=== PATIENT | female | born 1940 | race Caucasian/White ===

== ENCOUNTER → 2018-04-03 10:22 | Outpatient (CLI) | payer BC, SELFPAY ==
[2018-04-03 12:24] LABS: Absolute Lymphocyte Count 1.57 X10^3/ul (0.83-4.51); Absolute Neutrophil Count 3.1 X10^3/uL (2.0-7.7); Basophil# 0.04 X10^3/uL; Basophil% 0.8 % (0-1); Eosinophils% 3.8 % (0-5); Hematocrit 42.6 % (37-47); Hemoglobin 14.1 g/dl (12.0-15.0); Lymphocyte # 1.57 X10^3/ul (4.0); Lymphocyte % 29.8 % (19-41); Mean Corp Hgb Conc 33.1 g/gl (32-36); Mean Corpuscular Hgb 31.1 pg (27.0-32.0); Mean Platelet Vol. 11.6 fl (6.2-12.0); Monocyte# 0.35 X10^3/uL; Monocyte% 6.7 % (0-10); Neutrophil # 3.09 X10^3/uL (2.7-7.7); Neutrophil % 58.7 % (47-70); Platelet Count 262 K/mm3 (150-450); RBC Distribution Width CV 13.4 % (11.6-14.6); RBC Distribution Width SD 44.8 fl (35.1-43.9); Red Blood Count 4.53 M/mm3 (4.2-5.4); White Blood Count 5.3 K/mm3 (4.4-11.0)
[2018-04-03 12:39] LABS: POSITIVE COUNT NO; POSITIVE DIFFERENTIAL NO; POSITIVE MORPHOLOGY NO
[2018-04-03 12:41] LABS: ALB/GLOB Ratio 0.9 RATIO (0.9-2.4); AST(SGOT) 18 U/L (15-37); Alanine Aminotransfer ALT/SGPT 30 U/L (13-56); Albumin, Serum 3.7 g/dL (3.2-5.0); Alkaline Phosphatase 123 U/L (45-117); Anion Gap 8 (5-15); BUN 18 mg/dL (7-18); BUN/Creat Ratio 21.9 RATIO (10-20); Calcium,Total 9.4 mg/dL (8.5-10.1); Chloride 105 mmol/L (98-107); Creatinine, Serum 0.82 mg/dL (0.55-1.02); EST Glomerular Filtration Rate 72 mL/min (>60); Est Glom Filt Rate - Afr Amer 87 mL/min (>60); Globulin 3.9 g/dL (2.2-4.2); Glucose 102 mg/dL (74-106); Potassium 4.4 mmol/L (3.5-5.1); Protein, Total 7.6 g/dL (6.4-8.2); Sodium Level 138 mmol/L (136-145)
== END ==
PROVIDERS: Family Provider Family Medicine; PCP Family Medicine; Visit Provider Family Medicine
DX: I89.0 Lymphedema, not elsewhere classified (principal); E04.9 Nontoxic goiter, unspecified
CPT/HCPCS: 36415; 80053; 84443; 85025

== ENCOUNTER → 2019-02-11 10:50 | Outpatient (CLI) | payer MEDICARE, OTHER, SELFPAY ==
--- NOTE | 2019-02-11 11:02 | BI_ITS ---
MAMMOGRAPHY - BILATERAL SCREENING REASON FOR EXAM: Female, 78 years old. Routine annual screening examination. PERTINENT HISTORY: Non-contributory. TECHNIQUE: Digital bilateral breast todd (3D mammographic acquisition) in the CC and MLO projections. 2-D mediolateral oblique (MLO) and craniocaudad (CC) views of both breasts were obtained. CAD: Full Field Digital Mammography with Computer Added Detection was performed. COMPARISON: Comparison is made with prior outside examination dated January 22, 2016. FINDINGS: Breast Composition: The breasts are heterogeneously dense, which may obscure small masses. There are no dominant masses or suspicious calcifications. Stable small benign appearing axillary lymph nodes. No other significant abnormalities are identified. There has been no significant change since the prior study. BI/SCREEN MAMM (CAD) W/TODD BILAT IMPRESSION: Stable bilateral screening mammogram. Yearly follow-up mammogram recommended. (A) ASSESSMENT CATEGORY: BIRADS Category 2: Benign. A letter regarding these results will be sent to the patient by the facility within 30 days. Approximately 10% of breast cancers are not detected by mammography. A normal mammogram should not delay biopsy of a clinically suspicious abnormality. [id number] Electronically Signed: Trevor Adkins, at 9:05 EDT , Service support ,
== END ==
PROVIDERS: Family Provider Family Medicine; PCP Family Medicine; Referring Provider Family Medicine; Visit Provider Family Medicine
DX: Z12.31 Encounter for screening mammogram for malignant neoplasm of breast (principal)
CPT/HCPCS: 77063; 77067

== ENCOUNTER → 2022-10-30 | Outpatient (CLI) | payer MEDICARE, OTHER, SELFPAY ==
--- NOTE | 2022-10-30 10:17 | BI_ITS ---
MAMMOGRAPHY - BILATERAL SCREENING REASON FOR EXAM: Female, 82 years old. Routine annual screening examination. PERTINENT HISTORY: Non-contributory. TECHNIQUE: Digital bilateral breast todd (3D mammographic acquisition) in the CC and MLO projections. 2-D mediolateral oblique (MLO) and craniocaudad (CC) views of both breasts were obtained. CAD: Full Field Digital Mammography with Computer Added Detection was performed. COMPARISON: Comparison is made with prior study dated February 11, 2019. FINDINGS: Breast Composition: The breasts are heterogeneously dense, which may obscure small masses. There are no dominant masses or suspicious calcifications. Stable benign-appearing bilateral axillary lymph nodes. No other significant abnormalities are identified. There has been no significant change since the prior study. BI/SCRN MAMM (CAD)W/TODD BILAT IMPRESSION: Stable bilateral screening mammogram. Yearly follow-up mammogram recommended. (A) ASSESSMENT CATEGORY: BIRADS Category 2: Benign. A letter regarding these results will be sent to the patient by the facility within 30 days. Approximately 10% of breast cancers are not detected by mammography. A normal mammogram should not delay biopsy of a clinically suspicious abnormality. [id number] Electronically Signed: Trevor Adkins MD at 11:08 EDT ,
--- NOTE | 2022-10-30 10:33 | BD_ITS ---
STUDY: DUAL ENERGY X-RAY ABSORPTIOMETRY / DXA REASON FOR EXAM: Female, 82 years old. [id number] TECHNIQUE: Bone Mineral Density (BMD) measurements of lumbar spine and bilateral hips were obtained. COMPARISON: None. FINDINGS: Lumbar Spine (L1-L4): g/cm2 (1.128) / T-score (0.7) / Z-score (3.5) Findings are suggestive of normal bone density with a low fracture risk. Left Femur Total: g/cm2 (0.761) / T-score (-1.5) / Z-score (0.6) Left Femoral Neck: g/cm2 (0.6-0) / T-score (-2.1) / Z-score (0.3) Right Femur Total: g/cm2 (0.750) / T-score (-1.6) / Z-score (0.5) Right Femoral Neck: g/cm2 (0.633) / T-score (-1.9) / Z-score (0.4) BD/Dexa Bone Density Study IMPRESSION: The patient is considered osteopenic as outlined below according to World Ma[employer] Organization (WHO) criteria with a moderate fracture risk. Reference Information: The T-score is the number of standard deviations above or below the standard which is normal for young adults at their peak bone mineral density. The World Health Organization (WHO) interprets the T-scores as follows: Above -1 Normal bone density Between -1 and -2.5 Osteopenia Equal to / or below -2.5 Osteoporosis As a practical clinical guideline, osteopenia may be graded as follows: Mild -1 through -1.5 Moderate -1.6 through -2.0 Severe -2.1 through -2.4 The Z-score is the number of standard deviations above or below age-matched controls. A Z-score of less than -1.5 would be considered abnormal. References: 1. NIH Osteoporosis and Related Bone Diseases www osteo.org 2. International Society for Clinical Densitometry www iscd.org 3. National Osteoporosis Foundation www nof.org Electronically Signed: Trevor Adkins MD at 9:44 EDT ,
== END | disposition home or self-care (01) ==
PROVIDERS: PCP Internal Medicine; Referring Provider Internal Medicine; Visit Provider Internal Medicine
DX: Z12.31 Encounter for screening mammogram for malignant neoplasm of breast (principal); Z78.0 Asymptomatic menopausal state
CPT/HCPCS: 77063; 77067; 77080

== ENCOUNTER → 2022-11-05 | Outpatient (CLI) | payer MEDICARE, OTHER, SELFPAY ==
--- NOTE | 2022-11-05 08:38 | RAD_ITS ---
STUDY: X-RAY - ESOPHAGUS (BARIUM SWALLOW) WITH FLUOROSCOPY REASON FOR EXAM: Female, 82 years old. DIFFICULT SWALLOWING TECHNIQUE: 18 view(s) of the esophagus were obtained following swallowing of barium. FLUOROSCOPY TIME (if supplied): (35 seconds) minutes/seconds. 5.6 mGy COMPARISON: None. FINDINGS: There is no demonstrated esophageal foreign body. There is no demonstrated stricture or mucosal abnormality. Normal gastroesophageal junction, without a demonstrated hiatal hernia. The patient ingested a 12 mm tablet of barium without any difficulty. There is atherosclerotic calcification of the aortic arch with tortuosity of the descending aorta. Normal visualized pulmonary parenchyma. There are diffuse degenerative changes of the visualized thoracic spine. RAD/Esophagus Dual Contrast IMPRESSION: Normal plain film x-ray examination (barium swallow) of the esophagus. Electronically Signed: Trevor Adkins MD at 14:28 EDT ,
== END | disposition home or self-care (01) ==
LOC: RAD 08:37
PROVIDERS: PCP Internal Medicine; Referring Provider Internal Medicine; Visit Provider Internal Medicine
DX: R13.10 Dysphagia, unspecified (principal)
CPT/HCPCS: 74221

== ENCOUNTER → 2022-11-08 | Outpatient (CLI) | payer MEDICARE, OTHER, SELFPAY ==
--- NOTE | 2022-11-08 08:40 | ECHOD_ITS ---
Reason For Study: SYSTOLIC MURMUR Procedure This was a 2D Doppler, Color Flow transthoracic echocardiogram. Technically difficult study due to pectus excavatum. Patient scanned laterally in supine position. Exam performed in department. Left Ventricle Normal LV size. Left ventricular systolic function is normal. The estimated ejection fraction is 65 %. No regional wall motion abnormalities noted. Right Ventricle Normal RV size. Normal systolic function. Atria Normal left atrium. Normal right atrium. Mitral Valve Bileaflet diffuse mitral valve thickening. Tricuspid Valve Normal tricuspid valve. Mild tricuspid valve insufficiency. Aortic Valve Trisinus/trileaflet aortic valve. Mild focal aortic valve calcification. Pulmonic Valve Normal pulmonic valve. Great Vessels Normal aortic root. The pulmonary artery is normal size. Normal inferior vena cava. Pericardium/Pleural No pericardial effusion. MMode/2D Measurements & Calculations LAV(MOD-bp): 74.1 ml LVAd ap4: 22.0 cm2 SV(MOD-sp4): 41.3 ml LAV(MOD-bp) Indexed: 40.4 ml/m2 LVLd ap4: 7.1 cm LAV(MOD-sp2): 98.8 ml EDV(MOD-sp4): 56.4 ml LAV(MOD-sp4): 52.9 ml EDV(sp4-el): 57.6 ml LVAs ap4: 10.1 cm2 LVLs ap4: 5.7 cm ESV(MOD-sp4): 15.0 ml ESV(sp4-el): 15.2 ml EF(MOD-sp4): 73.3 % EF(sp4-el): 73.6 % SV(sp4-el): 42.4 ml LA A4 area: 21.1 cm2 LA dimension(2D): 4.3 cm RA A4 area: 13.7 cm2 Time Measurements MV dec time: 0.38 sec Doppler Measurements & Calculations MV E max wilmar: 127.8 cm/sec Lat Peak E' Wilmar: 7.0 cm/sec Med Peak E' Wilmar: 5.8 cm/sec MV A max wilmar: 139.7 cm/sec E/E' lat: 18.2 E/E' med: 22.0 MV E/A: 0.92 MV V2 max: 148.5 cm/sec MV dec slope: 343.1 cm/sec2 Ao V2 max: 188.3 cm/sec MV max P.8 mmHg Ao max P.2 mmHg MV V2 mean: 79.0 cm/sec Ao V2 mean: 133.6 cm/sec MV mean P.1 mmHg Ao mean P.1 mmHg MV V2 VTI: 53.6 cm Ao V2 VTI: 51.4 cm AV (velocity ratio): 0.72 LV V1 max: 127.0 cm/sec TR max wilmar: 222.4 cm/sec LV V1 max P.4 mmHg TR max P.8 mmHg LV V1 mean P.1 mmHg LV V1 mean: 95.7 cm/sec LV V1 VTI: 36.9 cm ECHO/Echo Complete Interpretation Summary Normal LV size. Left ventricular systolic function is normal. The estimated ejection fraction is 65 %. Mild tricuspid valve insufficiency. Bileaflet diffuse mitral valve thickening. Ordering Physician: Fara Gotti Referring Physician: Fara Gotti Performed By: Jodee Freedman RCS
== END | disposition home or self-care (01) ==
LOC: CVS 08:39
PROVIDERS: PCP Internal Medicine; Referring Provider Internal Medicine; Visit Provider Internal Medicine
DX: R01.1 Cardiac murmur, unspecified (principal)
CPT/HCPCS: 93306

== ENCOUNTER → 2023-09-17 | Outpatient (CLI) | payer MEDICARE, OTHER, SELFPAY ==
--- NOTE | 2023-09-17 08:53 | NM_ITS ---
CLINICAL: 82-year-old female with history of elevation of the serum alkaline phosphatase level. WHOLE BODY 99m Tc MDP RADIONUCLIDE BONE SCINTIGRAPHY COMPARISON: None available FINDINGS: Following the intravenous administration of 25.8 mCi of 99m Tc MDP, whole body bone images reveal: 1. Increased tracer uptake is identified in the right hemipelvis to include the iliac wing, sacroiliac joint, acetabulum, superior pubic ramus, pubic symphysis and posterior ischium. 2. Facilitated radiopharmaceutical is visualized in the bilateral wrists and hands, the acromioclavicular and sternoclavicular compartments of both shoulders, the glenohumeral compartment of the right shoulder, both knee articulations, the ankles and midfoot bilaterally, the left posterior sacrum. 3. The remaining skeletal structures are scintigraphically unremarkable with normal-appearing renal images and urinary bladder activity identified. NM/Bone Scan Whole Body IMPRESSION: 1. 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 Plain film radiography correlation may be of benefit for further characterization. 2. 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 Electronically Signed: Alberto Mary DO at 9:38 EDT ,
== END | disposition home or self-care (01) ==
LOC: NM 08:46
PROVIDERS: PCP Internal Medicine; Referring Provider Internal Medicine; Visit Provider Internal Medicine
DX: R74.8 Abnormal levels of other serum enzymes (principal)
CPT/HCPCS: 78306; A9503

== ENCOUNTER → 2023-10-13 | Outpatient (CLI) | payer MEDICARE, OTHER, SELFPAY ==
--- NOTE | 2023-10-13 07:27 | CT_ITS ---
INDICATION: abnormal CT scan of chest, r/o interstitial lung disease EXAMINATION: CT CHEST WITHOUT CONTRAST - CT Chest W/O Contrast Injection TECHNIQUE: Helically acquired images were obtained of the chest. A radiation dose optimization technique was used for this scan. IV Contrast dosage and agent: None. RADIATION DOSAGE (If Supplied By Facility): CTDIvol = ( 7.7 ) mGy, DLP = ( 287.55 ) mGycm COMPARISON: No relevant prior comparison study available FINDINGS: LUNGS, PLEURA AND LARGE AIRWAYS: The upper lung zones are essentially unremarkable. Focal areas of cylindrical bronchiectasis in the right middle lobe and both lower lobes. Mild cystic changes in the medial aspect of the right lower lobe. Mild stranding in the left lower lobe could be due to scarring. Mild diffuse panlobular emphysematous changes. No pleural effusion or thickening. No pneumothorax. THYROID: No thyroid lesions. HEART AND PERICARDIUM: Borderline heart size. No pericardial effusion. CORONARY ARTERIES: Coronary artery calcification is seen. VESSELS: Thoracic aorta is not dilated. MEDIASTINUM AND ROXANNE: No mediastinal or hilar adenopathy. Esophagus is unremarkable. No hiatal hernia. UPPER ABDOMEN: No acute pathology. BONES: No suspicious lytic or blastic abnormality. Degenerative changes. CT/Chest without Contrast IMPRESSION: 1. Patchy cylindrical bronchiectatic changes in the right middle and bilateral lower lobes. 2. Moderate stranding in the left lower lobe could be due to atelectasis or scarring. 3. No focal acute infiltrate, adenopathy or pleural effusions. Electronically Signed: Ludwig Miles MD at 8:40 EDT ,
== END | disposition home or self-care (01) ==
LOC: CT 07:25
PROVIDERS: PCP Internal Medicine; Referring Provider Internal Medicine; Visit Provider Internal Medicine
DX: R93.89 Abnormal findings on diagnostic imaging of other specified body structures (principal)
CPT/HCPCS: 71250

== ENCOUNTER → 2023-11-03 | Outpatient (CLI) | payer MEDICARE, OTHER, SELFPAY ==
--- NOTE | 2023-11-03 09:38 | BI_ITS ---
MAMMOGRAPHY - BILATERAL SCREENING REASON FOR EXAM: Female, 83 years old. Routine annual screening examination. PERTINENT HISTORY: Non-contributory. TECHNIQUE: Digital bilateral breast todd (3D mammographic acquisition) in the CC and MLO projections. 2-D mediolateral oblique (MLO) and craniocaudad (CC) views of both breasts were obtained. CAD: Full Field Digital Mammography with Computer Added Detection was performed. COMPARISON: Comparison is made with prior study dated October 30, 2022 and February 11, 2019. FINDINGS: Breast Composition: The breasts are heterogeneously dense, which may obscure small masses. There are no dominant masses or suspicious calcifications. Stable fat-containing bilateral axillary lymph nodes. No other significant abnormalities are identified. There has been no significant change since the prior study. BI/SCRN MAMM (CAD)W/TODD BILAT IMPRESSION: Stable bilateral screening mammogram. Yearly follow-up mammogram recommended. (A) ASSESSMENT CATEGORY: BIRADS Category 1: Negative. A letter regarding these results will be sent to the patient by the facility within 30 days. Approximately 10% of breast cancers are not detected by mammography. A normal mammogram should not delay biopsy of a clinically suspicious abnormality. [id number] Electronically Signed: Trevor Adkins MD at 10:51 EDT ,
== END | disposition home or self-care (01) ==
LOC: OPBI 09:38
PROVIDERS: PCP Internal Medicine; Referring Provider Internal Medicine; Visit Provider Internal Medicine
DX: Z12.31 Encounter for screening mammogram for malignant neoplasm of breast (principal)
CPT/HCPCS: 77063; 77067

== ENCOUNTER → 2024-11-03 | Outpatient (CLI) | payer MEDICARE, OTHER, SELFPAY ==
--- NOTE | 2024-11-03 09:28 | NM_ITS ---
PROCEDURE: PARATHYROID SCAN REASON FOR EXAM: HYPERPARATHYROIDISM. Elevated calcium level. TECHNIQUE: Nuclear medicine parathyroid imaging performed following intravenous technetium- 99m sestamibi administration. Immediate and delayed anterior imaging of the neck were obtained. RADIOPHARMACEUTICAL: Technetium 99 M sestamibi DOSE 28mCi intravenous. COMPARISON: None. FINDINGS: On immediate images, normal and symmetric appearance of both thyroid lobes is seen, without focus of abnormal uptake. Delayed images show normal decrease over time, without residual focus to suggest hyperactive parathyroid tissue. NM/Parathyroid Scan IMPRESSION: Negative examination, without evidence of hyperactive parathyroid tissue. Reading Location: [id number]
== END | disposition home or self-care (01) ==
LOC: NM 09:28
PROVIDERS: PCP Internal Medicine; Referring Provider Internal Medicine; Visit Provider Internal Medicine
DX: E21.3 Hyperparathyroidism, unspecified (principal)
CPT/HCPCS: 78070; A9500

== ENCOUNTER → 2024-11-09 | Outpatient (CLI) | payer MEDICARE, OTHER, SELFPAY ==
--- NOTE | 2024-11-09 08:02 | BI_ITS ---
EXAM: SCRN MAMM (CAD)W/TODD BILAT DATE: 11/09/2024 CLINICAL HISTORY: F, Age 84 y/o , SCREENING No family history. BREAST CANCER RISK ASSESSMENT: Not assessed. TECHNIQUE: Bilateral screening digital breast tomosynthesis with 2D and 3D images. Computer aided detection. COMPARISON: Prior exam(s) dated November 03, 2023.. FINDINGS: TISSUE DENSITY: The breast tissue is heterogenously dense, which may obscure small masses. Bilateral Breast Mammographic Findings: No significant masses, calcifications or other abnormalities are identified. No suspicious masses, areas of developing architectural distortion, or suspicious calcifications. There has been no significant interval change. BI/SCRN MAMM (CAD)W/TODD BILAT IMPRESSION: OVERALL FINAL ASSESSMENT: BIRADS 1 NEGATIVE RECOMMENDATION: Routine annual follow-up in 1 Year A letter with findings and recommendations will be mailed to the patient. Reading Location: [place] [id number]
--- NOTE | 2024-11-09 08:08 | BD_ITS ---
PROCEDURE: DEXA BONE DENSITY STUDY 11/09/2024 REASON FOR EXAM: F, age 84 y/o . Postmenopausal. TECHNIQUE: DXA scan of sites with data reported below. [facility] LINKS[facility] COMPARISON: Prior study dated October 30, 2022. FINDINGS: BMD and T-SCORES Lumbar spine: 1.126 g/cm2, T-score 0.7 Levels: L1 through L4 Change from prior: Loss of 0.1%. Left femoral neck: 0.569 g/cm2, T-score -2.5 Femoral neck comparison data not recommended for monitoring change. Left total hip: 0.730 g/cm2, T-score -1.7 Change from prior: Loss of 4%. Right femoral neck: 0.607 g/cm2, T-score -2.2 Femoral neck comparison data not recommended for monitoring change. Right total hip: 0.744 g/cm2, T-score -1.6 Change from prior: Loss of 0.7%. The World Health Organization has defined the following categories based on bone density: Normal bone density: T-score equal to or greater than -1.0 Osteopenia: T-score between -1.0 and -2.5 Osteoporosis: T-score equal to or less than -2.5 The patient does meet the pharmacological treatment recommendations for prevention of osteoporosis. BD/Dexa Bone Density Study IMPRESSION: OSTEOPOROSIS. Recommend follow-up as clinically warranted. Reading Location: [place] [id number]
== END | disposition home or self-care (01) ==
LOC: OPBD 08:00
PROVIDERS: PCP Internal Medicine; Referring Provider Internal Medicine; Visit Provider Internal Medicine
DX: Z12.31 Encounter for screening mammogram for malignant neoplasm of breast (principal); Z78.0 Asymptomatic menopausal state
CPT/HCPCS: 77063; 77067; 77080

== ENCOUNTER → 2025-01-24 | Outpatient (CLI) | payer MEDICARE, OTHER, SELFPAY | END | disposition home or self-care (01) | LOC: PSN 07:55 | PROVIDERS: PCP Internal Medicine; Referring Provider Internal Medicine; Visit Provider Internal Medicine | DX: I49.3 Ventricular premature depolarization (principal) | CPT/HCPCS: 93225; 93226 ==

== ENCOUNTER → 2025-04-14 | Outpatient (CLI) | payer MEDICARE, OTHER, SELFPAY ==
[2025-04-14 10:03] LABS: Hematocrit 46.9 % (37-47); Hemoglobin 15.1 g/dL (12.0-15.0); Immature Granulocytes Count 0.020 X10^3/uL (0.0-0.0); Mean Corp Hgb Conc 32.2 g/dL (32-36); Mean Corpuscular Volume 95.1 fL (81-99); Mean Platelet Vol. 11.8 fl (6.2-12.0); NRBC Flagged by Analyzer 0 % (0-5); Platelet Count 222 K/mm3 (150-450); RBC Distribution Width CV 13.4 % (11.6-14.6); RBC Distribution Width SD 47.4 fl (35.1-43.9); Red Blood Count 4.93 M/mm3 (4.2-5.4); White Blood Count 5.6 K/mm3 (4.4-11.0)
[2025-04-14 11:01] LABS: AST(SGOT) 28 U/L (<=31); Alanine Aminotransfer ALT/SGPT 26 U/L (<=34); Albumin, Serum 4.4 g/dL (3.4-4.8); Alkaline Phosphatase 129 U/L (35-104); Anion Gap 9 (5-15); BUN 21 mg/dL (4-19); BUN/Creat Ratio 28.2 RATIO (10-20); Calcium,Total 10.4 mg/dL (7.6-11.0); Carbon Dioxide 28.1 mmol/L (21.0-32.0); Chloride 101 mmol/L (98-108); Cholesterol 235 mg/dL (<=200); Globulin 3.2 g/dL (2.2-4.2); Glucose 96 mg/dL (70-99); Low Density Lipoprotein Calc. 132 mg/dL; Potassium 4.6 mmol/L (3.3-5.1); Triglycerides 66 mg/dL; Very Low Density Lipoprotein 13 mg/dL (5-40); cholesterol:hdl ratio screen 2.55
[2025-04-14 11:11] LABS: PTHIN 97 pg/mL (11-61)
[2025-04-14 13:00] LABS: Magnesium 2.4 mg/dL (1.5-2.2)
[2025-04-17 16:08] LABS: Vitamin D 1,25-Dihydroxy 44.3 pg/mL (24.8-81.5)
== END | disposition home or self-care (01) ==
LOC: LAB 08:39
PROVIDERS: PCP Internal Medicine; Referring Provider Internal Medicine Cardiovascular Disease; Visit Provider Internal Medicine Cardiovascular Disease
DX: E21.3 Hyperparathyroidism, unspecified (principal); E78.5 Hyperlipidemia, unspecified; M81.0 Age-related osteoporosis without current pathological fracture; R73.09 Other abnormal glucose
CPT/HCPCS: 80053; 80061; 82652; 83036; 83735; 83970; 84443; 85025

== ENCOUNTER → 2025-05-04 | Outpatient (CLI) | payer MEDICARE, OTHER, SELFPAY ==
--- NOTE | 2025-05-04 06:32 | ECHOD_ITS ---
Reason For Study Reason For Study: CAD/ASHD Procedure This was a 2D Doppler, Color Flow transthoracic echocardiogram. Technically difficult study due to pectus excavatum. Exam performed in department. Left Ventricle Normal size and thickness. The left ventricular ejection fraction is 65 %. Diastolic function is indeterminate. Right Ventricle Normal right ventricle. Atria The left atrium is moderately enlarged. Normal right atrium. Mitral Valve Mild diffuse mitral valve thickening. Trivial mitral valve insufficiency. Tricuspid Valve Trivial tricuspid valve insufficiency. Right ventricular systolic pressure estimated to be 41 mmHg. Aortic Valve Mildly calcified tricuspid aortic valve. Aortic valve sclerosis without stenosis. Pulmonic Valve The pulmonic valve is not well visualized. Great Vessels Normal sized aortic root. Pericardium/Pleural No pericardial effusion. MMode/2D Measurements & Calculations LVIDd: 4.3 cm IVSd: 1.1 cm Ao root diam: 2.7 cm LVIDs: 2.7 cm LVPWd: 0.66 cm FS: 38.2 % LAV(MOD-bp): 75.7 ml LVAd ap4: 21.6 cm2 SV(MOD-sp4): 34.6 ml LAV(MOD-bp) Indexed: 42.0 ml/m2 LVLd ap4: 6.9 cm SI(MOD-sp4): 19.2 ml/m2 LAV(MOD-sp2): 82.9 ml EDV(MOD-sp4): 56.1 ml LAV(MOD-sp4): 61.6 ml EDV(sp4-el): 57.3 ml LVAs ap4: 12.4 cm2 LVLs ap4: 6.1 cm ESV(MOD-sp4): 21.5 ml ESV(sp4-el): 21.5 ml EF(MOD-sp4): 61.7 % EF(sp4-el): 62.6 % SV(sp4-el): 35.9 ml LA A4 area: 22.4 cm2 LA dimension(2D): 4.6 cm RA A4 area: 9.8 cm2 TAPSE: 1.2 cm Time Measurements MV dec time: 0.24 sec Doppler Measurements & Calculations MV E max wilmar: 171.5 cm/sec Lat Peak E' Wilmar: 7.7 cm/sec Med Peak E' Wilmar: 5.3 cm/sec MV A max wilmar: 151.2 cm/sec E/E' lat: 22.1 E/E' med: 32.4 MV E/A: 1.1 MV V2 max: 213.1 cm/sec MV P1/2t max wilmar: 214.0 cm/sec Ao V2 max: 181.3 cm/sec MV max P.2 mmHg MV P1/2t: 86.1 msec Ao max P.1 mmHg MV V2 mean: 125.8 cm/sec MV mean P.4 mmHg MV dec slope: 727.8 cm/sec2 MV V2 VTI: 62.0 cm MVA(P1/2t): 2.6 cm2 LV V1 max: 93.5 cm/sec TR max wilmar: 256.8 cm/sec LV V1 max P.5 mmHg TR max P.4 mmHg LV V1 mean P.9 mmHg LV V1 mean: 64.3 cm/sec LV V1 VTI: 27.0 cm ECHO/Echo Complete Interpretation Summary The left ventricular ejection fraction is 65 %. Diastolic function is indeterminate. The left atrium is moderately enlarged. Mild diffuse mitral valve thickening. Right ventricular systolic pressure estimated to be 41 mmHg. Mildly calcified tricuspid aortic valve. Aortic valve sclerosis without stenosi s. Ordering Physician: Antolin Randolph Referring Physician: Antolin Randolph Performed By: Ovidio Cruz [facility]
--- OUTSIDE RECORDS SUMMARY | 2025-05-04 06:38 | XMS RPT_ITS | CCD ---
Author Organization [facility] Care Team Providers Care Private Client Advisor Name Role Phone Fast DO, Mel A Attending Unavailable Fast DO, Mel A Consulting Unavailable Fast, Dr. Chaudhari Primary Care Provider Nicky, Dr. Traore Attending Provider Fast DO, Mel A Unavailable Slarb ORACLE EBS ARCHITECT, Emani Unavailable Unavailable Manchak RUBBER TRIMMER, Saida Unavailable Unavailable Unavailable Unavailable Odilia Godinez MA Unavailable Unavailable Fast DO, Mel A Primary Care Provider FAST, MEL A Referring Unavailable FAST, MEL A Primary Care Unavailable Chandrakant Dewitt MD Primary Care Provider [phone]( [phone] Fast DO, Dr. Chaudhari Primary Care Provider Fast DO, Dr. Chaudhari Attending Provider Fast DO, Dr. Chaudhari Referring Provider [phone] Fast DO, Mel A Primary Care Provider FAST, MEL A Primary Care Unavailable ELVIN ARGUETA Attending Unavailable FAST, MEL A Primary Care Unavailable FAST, MEL A Primary Care Unavailable ELVIN ARGUETA Attending Unavailable Fast, Mel Primary Care Unavailable Fast, Mel Attending Unavailable Fast, Mel Referring Unavailable Fast, Mel Referring Unavailable Fast, Mel Primary Care Unavailable Fast, Mel Attending Unavailable Fast, Mel Referring Unavailable Fast, Mel Primary Care Unavailable Fast, Mel Attending Unavailable Fast, Mel Primary Care Unavailable Antolin Randolph Attending Unavailable Fast, Mel Referring Unavailable Fast, Mel Primary Care Unavailable León Saunders Attending Unavailable Fast, Mel Referring Unavailable Allergies Allergy Classification Reported Allergen(s) Allergy Type Date of Onset Reaction(s) Facility (10 sources) [facility]; Translations: [Jalapeno pepper] Allergy to substance (finding) [facility]; [facility] Work Phone: (1 source) ALLERGIES NOT ON FILE; Translations: [ALLERGIES NOT ON FILE] Propensity to adverse reactions (disorder) [facility] 2 Repository Medications Completed/Discontinued Medications Medication Drug Class(es) Dates Sig (Normalized) Sig (Original) cefdinir 300 mg oral capsule (10 sources) Cephalosporin Antibacterial Start: 12-16-2022 End: 12-26-2022 take 1 capsule by mouth twice daily cefdinir 300 mg oral capsule 1 (one) capsule bid for 10 days Quantity: 20 {Capsule} Refills: 0 Ordered: 16-Dec-2022 Saida Brewster CMA Start : 16-Dec-2022 End : 26-Dec-2022 Inactive Problems Active Problems Problem Classification Problem Date Documented Da te Episodic/Chronic Cardiac dysrhythmias (1 source) Ventricular premature depolarization; Translations: [Ventricular premature depolarization] Onset: 5 Chronic Chronic obstructive pulmonary disease and bronchiectasis (1 source) Bronchiectasis, uncomplicated; Translations: [Bronchiectasis, uncomplicated] Onset: 5 Chronic Coronary atherosclerosis and other heart disease (1 source) Atherosclerotic heart disease of [place] coronary artery without angina pectoris; Translations: [Atherosclerotic heart disease of [place] coronary artery without angina pectoris] Onset: 5 Chronic Diabetes mellitus without complication (16 sources) High hemoglobin A1c level; Translations: [Elevated hemoglobin A1c] 12-30-2022 Episodic Comment on above: again discussed diet and ex in detail Disorders of lipid metabolism (19 sources) Hyperlipidemia; Translations: [Hyperlipidemia] Onset: 4 12-30-2022 Chronic Comment on above: discussed diet and e x in detail she not wanting to take meds Fluid and electrolyte disorders (19 sources) Hyperkalemia; Translations: [Serum potassium elevated] 12-31-2022 Episodic Genitourinary symptoms and ill-defined conditions (20 sources) Urgent desire to urinate; Translations: [Urinary urgency] Resolved: 3 10-18-2022 Episodic Heart valve disorders (18 sources) Tricuspid valve regurgitation; Translations: [Tricuspid regurgitation] 12-30-2022 Chronic Comment on above: mild Heart valve disorders (20 sources) Systolic murmur; Translations: [Systolic murmur] Resolved: 3 10-18-2022 Episodic Malaise and fatigue (20 sources) Fatigue; Translations: [Fatigue] 10-18-2022 Episodic Neoplasms of unspecified nature or uncertain behavior (2 sources) Monoclonal gammopathy (clinical); Translations: [Monoclonal gammopathy] Onset: 5 11-11-2024 Chronic Osteoarthritis (20 sources) Arthritis of right knee; Translations: [Arthritis of knee, right] 10-18-2022 Chronic Comment on above: has been better with tumeric Other bone disease and musculoskeletal deformities (18 sources) Osteopenia; Translations: [Osteopenia] 12-30-2022 Episodic Comment on above: weight bearing exerc ise Other endocrine disorders (1 source) Hyperparathyroidism, unspecified; Translations: [Hyperparathyroidism, unspecified] Onset: 5 Chronic Other gastrointestinal disorders (20 sources) Dysphagia; Translations: [Difficulty swallowing] 10-18-2022 Episodic Comment on above: ESOPHAGRAM NORMAL sh e not feel like an issue right now-she doesnt want to do egd Other liver diseases (16 sources) Alkaline phosphatase raised; Translations: [Elevated alkaline phosphatase level] 12-30-2022 Episodic Comment on above: no bone pain will fo llowup Other non-traumatic joint disorders (1 source) Pain in right knee; Translations: [Pain in joint, lower leg] 10-25-2020 Episodic Other nutritional; endocrine; and metabolic disorders (20 sources) Overweight in adulthood with body mass index of 25 or more but less than 30; Translations: [BMI 29.0-29.9,adult] 10-18-2022 Episodic Other screening for suspected conditions (not mental disorders or infectious disease) (20 sources) Patient encounter status; Translations: [Encounter for screening mammogram for breast cancer (Renamed from Encounter for screening mammogram for malignant neoplasm of breast)] Onset: 5 10-18-2022 Episodic Residual codes; unclassified (20 sources) Non-smoker; Translations: [Nonsmoker] 10-18-2022 Episodic Residual codes; unclassified (20 sources) Postmenopausal state; Translations: [Postmenopausal (Renamed from Postmenopausal status)] Resolved: 3 10-18-2022 Episodic Residual codes; unclassified (16 sources) Amnesia; Translations: [Memory loss] 12-30-2022 Episodic Comment on above: sounds like this is longstanding issue since young and may have a processing issue thata was never diagnosed based on her childhood history will monitor for change Thyroid disorders (20 sources) Goiter; Translations: [Thyroid goiter] 10-18-2022 Chronic Comment on above: history of overactiv e thryoid and goiter at age 31- radioactive iodine treatment and has been good Unclassified (20 sources) Unclassified (18 sources) [facility] WELLNESS EXAM 12-30-2022 Unclassified (1 source) Supraventricular tachycardia, unspecified; Translations: [Supraventricular tachycardia, unspecified] Onset: 5 Unclassified (1 source) Other ventricular tachycardia; Translations: [Other ventricular tachycardia] Onset: 5 Urinary tract infections (20 sources) Urinary tract infectious disease; Translations: [UTI (urinary tract infection)] 12-16-2022 Episodic Varicose veins of lower extremity (16 sources) Asymptomatic varicose veins of unspecified lower extremity; Translations: [Varicose veins of ankle] 12-30-2022 Episodic Comment on above: encourage wear suppo rt hose Past or Other Problems Problem Classification Problem Date Documented Da te Episodic/Chronic Other nutritional; endocrine; and metabolic disorders (20 sources) H/O: thyroid disorder; Translations: [History of thyroiditis] Onset: 03-15-2014 10-18-2022 Episodic Unclassified (10 sources) Only has Adopted children 10-18-2022 Results Test Name Value Interpretation Reference Range Facility Cardiology Visit Reporton Cardiology Visit Report [facility] [address] [place] [address] OFFICE VISIT Date of Service: 04/12/25 MR#: [id number] Acct: [id number] Name: NIGHAT BUCIO Rep #: [id number] : 1940 Provider: Dr. Antolin Randolph MD Age/Sex: 84/F Location: [facility] Status: Signed HPI HPI History of Present Illness Details: This lady has been referred to us for an abnormal Holter report. According to the patient, Holter monitoring was ordered by the patient's primary care physician as she noticed something abnormal on examination. Patient herself denies any history of palpitations. Patient Holter monitoring has been reported as showing a run of sinus tachycardia at 179 bpm. Upon reviewing it, it appears more like run of supraventricular tachycardia. Also ventricular run is reported. Patient denies any history of chest pains either at rest or with exertion. She does have some shortness of breath with strenuous exertion. Denies orthopnea PND. Denies any ankle edema. Denies lightheadedness or dizziness. No syncope or presyncope. Patient has had coronary artery calcium scoring done in 2023. It was noted to be abnormal with calcium score of 77. Intake Vital Signs 04/12/25 08:34 Weight: 165 lb BP 133/77 H Blood Pressure Location Lt brachial Position Sitting Respiration 16 Pulse 83 Pulse Source Monitor Intake Visit Reasons: ABN HOLTER (FAST) Director Of Cardiology Service Line Required: No Accompanied by: Self Is patient in pain?: No Allergies No Known Allergies Allergy (Unverified 04/05/25 13:24) Medications ???Medication ???Instructions ???Recorded ???Confirmed ???Type arginine (L-arginine) 500 mg tablet 500 mg PO QDAY 04/05/25 5 History cholecalciferol (vitamin D3) 125 125 mcg PO QDAY 04/05/25 04/12/25 History mcg (5,000 unit) capsule coQ10 PO 04/05/25 History magnesium 250 mg tablet 250 mg PO QDAY 04/05/25 04/12/25 H istory mecobalamin (vitamin B12) 1,000 1,000 mcg PO QDAY 04/05/25 5 History mcg chewable tablet tumeric 1,000 mg PO 04/05/25 History Ejection fraction %: 65 Have you fallen in the past year?: No PFSH Medical History (Updated 04/12/25 @ 09:[address] Antolin Randolph MD) UTI (urinary tract infection) Hyperparathyroidism CAD (coronary artery disease) Osteopenia Bronchiectasis Monoclonal gammopathy Hyperlipidemia Elevated hemoglobin A1c Nonsmoker BMI 28.0-28.9,adult Paget's bone disease Tricuspid regurgitation Hypercalcemia Thyroid goiter History of thyroiditis Memory loss Difficulty swallowing Elevated alkaline phosphatase level Postmenopausal Varicose veins of ankle Arthritis of knee, right Surgical History History of cataract surgery Family History Brother Diabetes Mother Lung cancer stage 3 Father Hypertension Social History Smoking Status: Never smoker substance use type: does not use ROS Const Const: Negative for fatigue or weakness Eyes Eyes: Negative for change in vision ENT ENT: Negative for dizziness or balance problems Cardio Chest Pain: No Palpitations: No Edema: None Resp Respiratory: Negative for SOB with activity, SOB at rest or SOB orthopnea SOB lying down Additional Details: does have shortness of breath but states due to inverted breast bone and not new. GI GI: Negative nausea or heartburn Musc Musc: Negative for balance problems Neuro Neuro: Negative for dizziness, lightheadedness, near syncope, syncope or weakness Endo Endo: Negative for fatigue Cardiology Exam Exam Narrative Comfortable. No apparent distress. No carotid bruits. Heart sounds 1 and 2 are normal. 2/6 systolic murmur noted at base. Chest clear to auscultation bilaterally. Alert oriented x 3. 1+ bilateral ankle edema. Bilateral venous varicosities noted. Supplemental Info Supplemental Information Diagnostics: Echocardiogram Past Visits: Cardiology Visit Today Assessment and Plan Assessment and Plan (1) Supraventricular tachycardia: Status: Chronic Plan: Check echocardiogram. Check exercise stress Myoview. Start on metoprolol 25 mg twice daily. Check TSH, magnesium. (2) NSVT (nonsustained ventricular tachycardia): Status: Chronic Plan: Check echocardiogram. Check exercise stress Myoview. Start on metoprolol 25 mg twice daily. (3) CAD (coronary artery disease): Status: Chronic Plan: Abnormal coronary calcium artery score. Check exercise stress Myoview to evaluate physiological significance. Start enteric-coated aspirin 81 mg daily. Check lipid profile. (4) Bronchiectasis: Status: Chronic Plan: Re (more content not included)... Normal [facility] CNOVSPon 03-22-2025 CNOVSP Visit (SP) Office (FILI) NIGHAT BUCIO ([id number]) 1940 F Date Time Provider Department 03/22/25 8:40 AM ELVIN ARGUETA During your visit today, we recorded the following information about you: Temperature Pulse Blood pressure Weight 98.1 degrees 78/minute 153/84 75.8 kg Elvin Argueta MD 03/22/2025 9:33 AM Signed (Elements copied from my note dated November 11, 2024, have been reviewed and updated where appropriate, and all reflect current assessment and medical decision making from today's encounter, March 22, 2025) HISTORY OF PRESENT ILLNESS: Nighat Bucio is a 84 year old female referred for evaluation of monoclonal protein on serum SPEP. Discovered as part of work up for hypercalcemia. CARLOS shows monoclonal IgG and IgM. Low level. Labs otherwise normal. Calcium scoring CT scan last year, no adenopathy seen per report. 03-22-25 follow up, labs reviewed. ?monoclonal IgM versus polyclonal IgM, very low level. CLINICAL IMPRESSION: ? Monoclonal protein, of very doubtful clinical significance. RECOMMENDATION/PLAN: 1. Would not work this up further. Written and verbal health teaching given to patient, patient verbalizes understanding and agrees with treatment plan. PAST MEDICAL HISTORY Diagnosis Date Diverticulosis of colon (without mention of hemorrhage) Internal hemorrhoids without mention of complication Thyroiditis, unspecified treated with radioactive iodine PAST SURGICAL HISTORY Procedure Laterality Date COLONOSCOPY 2003 DILATION AND CURETTAGE DXAND/THER NONOBSTETRIC FAMILY HISTORY Problem Relation Age of Onset Cancer Mother uterine/lung other (prostate surgery [Other]) Father unsure if cancerous Heart Father open heart surgery Arthritis Mother osteoarthristis, allergy to sulf and environmental allergies Allergies Sister Thyroid Sister Thyroid Sister half sis Social History Tobacco Use Smoking status: Never Smokeless tobacco: Never Vaping Use Vaping status: Never Used Substance Use Topics Alcohol use: No Drug use: No ALLERGIES: ALLERGIES No Known Allergies CURRENT OUTPATIENT MEDICATIONS: OTC NUTRITIONAL SUPPLEMENT Take 2 capsules by mouth once daily. Tumeric vitamin b complex capsule Take 1 capsule by mouth once daily. cyanocobalamin, vitamin B-12, (VITAMIN B-12 PO) Take 1 tablet by mouth once daily. cholecalciferol, vitD3,/vit K2 (VITAMIN D3-VITAMIN K2 PO) Take 1 tablet by mouth once daily. OTC NUTRITIONAL SUPPLEMENT Take 2 tablets by mouth once daily. Magnesium Breakthrough REVIEW OF SYSTEMS: GENERAL: No fever, night sweats, weight loss or malaise. No palpable adenopathy. I spent a total of 30 minutes on the date of the service which included preparing to see the patient, [id number] patient care, completing clinical documentation, obtaining and/or reviewing separately obtained history, performing a medically appropriate examination, counseling and educating the patient/family/caregiv er, ordering medications, tests, or procedures, independently interpreting results (not separately reported), and communicating results to the patient/family/caregiv er. Electronically Signed: Elvin Argueta MD March 22, 2025 Allergies As of Date: 03/22/2025 (No Known Allergies) Date Reviewed: 03/22/2025 Reviewed by: Marcus Diaz MA - Fully Assessed Reason for Visit: Established Patient [175] Primary Visit Diagnosis:Monoclonal gammopathy [D47.2] Follow-up and Disposition History for Encounter Date Provider Department Center 03/22/2025 [id number], DREW [facility] Prescriptions as of 03/22/2025 - OTC NUTRITIONAL SUPPLEMENT Take 2 capsules by mouth once daily. Tumeric - vitamin b complex capsule Take 1 capsule by mouth once daily. - cyanocobalamin, vitamin B-12, (VITAMIN B-12 PO) Take 1 tablet by mouth once daily. - cholecalciferol, vitD3,/vit K2 (VITAMIN D3-VITAMIN K2 PO) Take 1 tablet by mouth once daily. - OTC NUTRITIONAL SUPPLEMENT Take 2 tablets by mouth once daily. Magnesium Breakthrough Problem List As Of Date 03/22/2025 Noted Resolved H/O thyroiditis [Z86.39] 03/15/2014 Encounter Status:Closed by ELVIN ARGUETA on 03/22/25 Normal [facility] B2 Microglob SerPl-mCncon Bfnc-3-Pwptohhdspbh n [Mass/Vol] 2.8 ug/mL Normal <3.1 [facility] Comment on above: Order Comment: Speci men Type: BLOOD SPECIMEN Ordering Facility: [facility] Address: [address] [place] [address] Result Comment: Beta -2 Microglobulin test is performed using the [employer] immunoturbidimetric method. Results obtained with different methods or kits cannot be used interchangeably. Performed By: #### 2 [id number], [id number] #### [facility] CLIA [id number] [address] [place] [address] [place] CBC W Auto Differential pane l (Bld)on 03-15-2025 Basophils (Bld) [#/Vol] 0.05 10*3/uL Normal <0.11 [facility] Comment on above: Order Comment: Speci men Type: BLOOD SPECIMEN Ordering Facility: [facility] Address: [address] [place] [address] Performed By: #### S ERIMM #### [facility] CLIA [id number] [address] [place] [address] [place] Basophils/100 WBC (Bld) 0.8 % Normal [facility] Comment on above: Order Comment: Speci men Type: BLOOD SPECIMEN Ordering Facility: [facility] Address: [address] [place] [address] Performed By: #### S ERIMM #### [facility] CLIA [id number] [address] [place] [address] [place] Differential cell count method Nom (Bld) Auto Normal [facility] Comment on above: Order Comment: Speci men Type: BLOOD SPECIMEN Ordering Facility: [facility] Address: [address] [place] [address] Performed By: #### S ERIMM #### [facility] CLIA [id number] [address] [place] [address] [place] Eosinophils (Bld) [#/Vol] 0.13 10*3/uL Normal <0.46 [facility] Comment on above: Order Comment: Speci men Type: BLOOD SPECIMEN Ordering Facility: [facility] Address: [address] [place] [address] Performed By: #### S ERIMM #### [facility] CLIA [id number] [address] [place] [address] [place] Eosinophils/100 WBC (Bld) 2.0 % Normal [facility] Comment on above: Order Comment: Speci men Type: BLOOD SPECIMEN Ordering Facility: [facility] Address: [address] [place] [address] Performed By: #### S ERIMM #### [facility] CLIA [id number] [address] [place] [address] [place] Erythrocyte distribution width (RBC) [Ratio] 13.2 % Normal 11.5-15.0 [facility] Comment on above: Order Comment: Speci men Type: BLOOD SPECIMEN Ordering Facility: [facility] Address: [address] [place] [address] Performed By: #### S ERIMM #### [facility] CLIA [id number] [address] [place] [address] [place] Hematocrit (Bld) [Volume fraction] 44.2 % Normal 36.0-46.0 [facility] Comment on above: Order Comment: Speci men Type: BLOOD SPECIMEN Ordering Facility: [facility] Address: [address] [place] [address] Performed By: #### S ERIMM #### [facility] CLIA [id number] [address] [place] [address] [place] Hemoglobin (Bld) [Mass/Vol] 14.8 g/dL Normal 11.5-15.5 [facility] Comment on above: Order Comment: Speci men Type: BLOOD SPECIMEN Ordering Facility: [facility] Address: [address] [place] [address] Performed By: #### S ERIMM #### [facility] CLIA [id number] [address] [place] [address] [place] Immature granulocytes (Bld) [#/Vol] 10*3/uL Normal <0.10 [facility] Comment on above: Order Comment: Speci men Type: BLOOD SPECIMEN Ordering Facility: [facility] Address: [address] [place] [address] Performed By: #### S ERIMM #### [facility] CLIA [id number] [address] [place] [address] [place] Immature granulocytes/100 WBC (Bld) 0.2 % Normal [facility] Comment on above: Order Comment: Speci men Type: BLOOD SPECIMEN Ordering Facility: [facility] Address: [address] [place] [address] Performed By: #### S ERIMM #### [facility] CLIA [id number] [address] [place] [address] [place] Lymphocytes (Bld) [#/Vol] 1.84 10*3/uL Normal 1.00-4.00 [facility] Comment on above: Order Comment: Speci men Type: BLOOD SPECIMEN Ordering Facility: [facility] Address: [address] [place] [address] Performed By: #### S ERIMM #### [facility] CLIA [id number] [address] [place] [address] [place] Lymphocytes/100 WBC (Bld) 28.9 % Normal [facility] Comment on above: Order Comment: Speci men Type: BLOOD SPECIMEN Ordering Facility: [facility] Address: [address] [place] [address] Performed By: #### S ERIMM #### [facility] CLIA [id number] [address] [place] [address] [place] MCH (RBC) [Entitic mass] 30.7 pg Normal 26.0-34.0 [facility] Comment on above: Order Comment: Speci men Type: BLOOD SPECIMEN Ordering Facility: [facility] Address: [address] [place] [address] Performed By: #### S ERIMM #### [facility] CLIA [id number] [address] [place] [address] [place] MCHC (RBC) [Mass/Vol] 33.5 g/dL Normal 30.5-36.0 [facility] Comment on above: Order Comment: Speci men Type: BLOOD SPECIMEN Ordering Facility: [facility] Address: [address] [place] [address] Performed By: #### S ERIMM #### [facility] CLIA [id number] [address] [place] [address] [place] MCV (RBC) [Entitic vol] 91.7 fL Normal 80.0-100.0 [facility] Comment on above: Order Comment: Speci men Type: BLOOD SPECIMEN Ordering Facility: [facility] Address: [address] [place] [address] Performed By: #### S ERIMM #### [facility] CLIA [id number] [address] [place] [address] [place] Monocytes (Bld) [#/Vol] 0.51 10*3/uL Normal <0.87 [facility] Comment on above: Order Comment: Speci men Type: BLOOD SPECIMEN Ordering Facility: [facility] Address: [address] [place] [address] Performed By: #### S ERIMM #### [facility] CLIA [id number] [address] [place] [address] [place] Monocytes/100 WBC (Bld) 8.0 % Normal [facility] Comment on above: Order Comment: Speci men Type: BLOOD SPECIMEN Ordering Facility: [facility] Address: [address] [place] [address] Performed By: #### S ERIMM #### [facility] CLIA [id number] [address] [place] [address] [place] Neutrophils (Bld) [#/Vol] 3.83 10*3/uL Normal 1.45-7.50 [facility] Comment on above: Order Comment: Speci men Type: BLOOD SPECIMEN Ordering Facility: [facility] Address: [address] [place] [address] Performed By: #### S ERIMM #### [facility] CLIA [id number] [address] [place] [address] [place] Neutrophils/100 WBC (Bld) 60.1 % Normal [facility] Comment on above: Order Comment: Speci men Type: BLOOD SPECIMEN Ordering Facility: [facility] Address: [address] [place] [address] Performed By: #### S ERIMM #### [facility] CLIA [id number] [address] [place] [address] [place] Nucleated RBC (Bld) [#/Vol] 10*3/uL Normal <0.01 [facility] Comment on above: Order Comment: Speci men Type: BLOOD SPECIMEN Ordering Facility: [facility] Address: [address] [place] [address] Performed By: #### S ERIMM #### [facility] CLIA [id number] [address] [place] [address] [place] Nucleated RBC/100 WBC (Bld) [Ratio] 0.0 /100 WBC Normal [facility] Comment on above: Order Comment: Speci men Type: BLOOD SPECIMEN Ordering Facility: [facility] Address: [address] [place] [address] Performed By: #### S ERIMM #### [facility] CLIA [id number] [address] [place] [address] [place] Platelet mean volume (Bld) [Entitic vol] 11.1 fL Normal 9.0-12.7 [facility] Comment on above: Order Comment: Speci men Type: BLOOD SPECIMEN Ordering Facility: [facility] Address: [address] [place] [address] Performed By: #### S ERIMM #### [facility] CLIA [id number] [address] [place] [address] [place] Platelets (Bld) [#/Vol] 197 10*3/uL Normal 150-400 [facility] Comment on above: Order Comment: Speci men Type: BLOOD SPECIMEN Ordering Facility: [facility] Address: [address] [place] [address] Performed By: #### S ERIMM #### [facility] CLIA [id number] [address] [place] [address] [place] RBC (Bld) [#/Vol] 4.82 10*6/uL Normal 3.90-5.20 [facility] Comment on above: Order Comment: Speci men Type: BLOOD SPECIMEN Ordering Facility: [facility] Address: [address] [place] [address] Performed By: #### S ERIMM #### [facility] CLIA [id number] [address] [place] [address] [place] WBC (Bld) [#/Vol] 6.37 10*3/uL Normal 3.70-11.00 [facility] Comment on above: Order Comment: Speci men Type: BLOOD SPECIMEN Ordering Facility: [facility] Address: [address] [place] [address] Performed By: #### S ERIMM #### [facility] CLIA [id number] [address] [place] [address] [place] Comprehensive metabolic 2000 panelon 03-15-2025 Albumin [Mass/Vol] 4.4 g/dL Normal 3.9-4.9 [facility] Comment on above: Order Comment: Speci men Type: BLOOD SPECIMEN Ordering Facility: [facility] Address: [address] [place] [address] Performed By: #### 2 532-0, 93708-9 #### [facility] CLIA [id number] [address] [place] [address] [place] ALP [Catalytic activity/Vol] 130 U/L High 34-123 [facility] Comment on above: Order Comment: Speci men Type: BLOOD SPECIMEN Ordering Facility: [facility] Address: [address] [place] [address] Performed By: #### 2 532-0, 57130-3 #### [facility] CLIA [id number] [address] [place] [address] [place] ALT [Catalytic activity/Vol] 19 U/L Normal 7-38 [facility] Comment on above: Order Comment: Speci men Type: BLOOD SPECIMEN Ordering Facility: [facility] Address: [address] [place] [address] Performed By: #### 2 532-0, 23862-9 #### [facility] CLIA [id number] [address] [place] [address] [place] Anion gap [Moles/Vol] 13 mmol/L Normal 8-15 [facility] Comment on above: Order Comment: Speci men Type: BLOOD SPECIMEN Ordering Facility: [facility] Address: [address] [place] [address] Performed By: #### 2 532-0, 37223-7 #### [facility] CLIA [id number] [address] [place] [address] [place] AST [Catalytic activity/Vol] 20 U/L Normal 13-35 [facility] Comment on above: Order Comment: Speci men Type: BLOOD SPECIMEN Ordering Facility: [facility] Address: [address] [place] [address] Performed By: #### 2 532-0, 33382-7 #### [facility] CLIA [id number] [address] [place] [address] [place] Bilirubin [Mass/Vol] 0.3 mg/dL Normal 0.2-1.3 [facility] Comment on above: Order Comment: Speci men Type: BLOOD SPECIMEN Ordering Facility: [facility] Address: [address] [place] [address] Performed By: #### 2 532-0, 32331-9 #### [facility] CLIA [id number] [address] [place] [address] [place] Calcium [Mass/Vol] 10.4 mg/dL High 8.5-10.2 [facility] Comment on above: Order Comment: Speci men Type: BLOOD SPECIMEN Ordering Facility: [facility] Address: [address] [place] [address] Performed By: #### 2 532-0, 47470-8 #### [facility] CLIA [id number] [address] [place] [address] [place] Chloride [Moles/Vol] 102 mmol/L Normal 98-107 [facility] Comment on above: Order Comment: Speci men Type: BLOOD SPECIMEN Ordering Facility: [facility] Address: [address] [place] [address] Performed By: #### 2 532-0, 43507-6 #### [facility] CLIA [id number] [address] [place] [address] [place] CO2 [Moles/Vol] 22 mmol/L Normal 22-30 [facility] Comment on above: Order Comment: Speci men Type: BLOOD SPECIMEN Ordering Facility: [facility] Address: [address] [place] [address] Performed By: #### 2 532-0, 09109-9 #### [facility] [id number] [address] [place] [address] [place] Creatinine [Mass/Vol] 0.67 mg/dL Normal 0.58-0.96 [facility] Comment on above: Order Comment: Speci men Type: BLOOD SPECIMEN Ordering Facility: [facility] Address: [address] [place] [address] Performed By: #### 2 532-0, 17301-6 #### [facility] CLIA [id number] [address] [place] [address] [place] eGFRcr SerPlBld CKD-EPI 2020 87 mL/min/1.73m??? Normal >=60 [facility] Comment on above: Order Comment: Speci men Type: BLOOD SPECIMEN Ordering Facility: [facility] Address: [address] [place] [address] Result Comment: Fadumo mated Glomerular Filtration Rate (eGFR) is calculated using the 2020 CKD-EPI creatinine equation. This equation utilizes serum creatinine, sex, and age as parameters. The creatinine assay has traceable calibration to isotope dilution-mass spectrometry. Refer to KDIGO guidelines for clinical interpretation. In patients with unstable renal function, e.g. those with acute kidney injury, the eGFR may not accurately reflect actual GFR. Performed By: #### 2 532-0, 80533-8 #### [facility] [id number] [address] [place] [address] [place] Glucose [Mass/Vol] 111 mg/dL High 74-99 [facility] Comment on above: Order Comment: Duc og Type: BLOOD SPECIMEN Ordering Facility: [facility] Address: [address] [place] [address] Result Comment: The [place] [employer] (ADA) provides guidance for cutoff values for fasting glucose and random glucose. The ADA defines fasting as no caloric intake for at least 8 hours. Fasting plasma glucose results between 100 to 125 mg/dL indicate increased risk for diabetes (prediabetes). Fasting plasma glucose results greater than or equal to 126 mg/dL meet the criteria for diagnosis of diabetes. In the absence of unequivocal hyperglycemia, results should be confirmed by repeat testing. In a patient with classic symptoms of hyperglycemia or hyperglycemic crisis, random plasma glucose results greater than or equal to 200 mg/dL meet the criteria for diagnosis of diabetes. Reference: Standards of Medical Care in Diabetes 2016, [place] [employer]. Diabetes Care. 2016.39(Suppl 1). Performed By: #### 2 532-0, 90757-8 #### [facility] [id number] [address] [place] [address] [place] Potassium [Moles/Vol] 4.2 mmol/L Normal 3.7-5.1 [facility] Comment on above: Order Comment: Duc og Type: BLOOD SPECIMEN Ordering Facility: [facility] Address: [address] [place] [address] Performed By: #### 2 532-0, 57643-4 #### [facility] CLIA [id number] [address] [place] [address] [place] Protein [Mass/Vol] 7.4 g/dL Normal 6.3-8.0 [facility] Comment on above: Order Comment: Speci men Type: BLOOD SPECIMEN Ordering Facility: [facility] Address: [address] [place] [address] Performed By: #### 2 532-0, 49853-7 #### [facility] CLIA [id number] [address] [place] [address] [place] Sodium [Moles/Vol] 137 mmol/L Normal 136-144 [facility] Comment on above: Order Comment: Speci men Type: BLOOD SPECIMEN Ordering Facility: [facility] Address: [address] [place] [address] Performed By: #### 2 532-0, 25998-2 #### [facility] CLIA [id number] [address] [place] [address] [place] Urea nitrogen [Mass/Vol] 32 mg/dL High 7-21 [facility] Comment on above: Order Comment: Speci men Type: BLOOD SPECIMEN Ordering Facility: [facility] Address: [address] [place] [address] Performed By: #### 2 532-0, 85020-0 #### [facility] CLIA [id number] [address] [place] [address] [place] IMMUNOFIXATION SCREEN, SERUM on 03-15-2025 INTERPRETATION (MPA) Atypical restricted bands are present in the IgM and kappa regions. Consistent with IgM kappa monoclonal gammopathy. Normal [facility] Comment on above: Order Comment: Speci men Type: BLOOD SPECIMEN Ordering Facility: [facility] Address: [address] [place] [address] Performed By: #### I [facility] #### [facility] CLIA [id number] [address] [place] [address] [place] MPA RESULT M protein is present. Abnormal No M p rotein is identified. [facility] Comment on above: Order Comment: Speci men Type: BLOOD SPECIMEN Ordering Facility: [facility] Address: [address] [place] [address] Performed By: #### I FESC #### [facility] CLIA [id number] [address] [place] [address] STAFF REVIEW (MPA) Reviewed by Dr. Johnna Blackwell MD [facility] Comment on above: Order Comment: Speci men Type: BLOOD SPECIMEN Ordering Facility: [facility] Address: [address] [place] [address] Performed By: #### I FESC #### [facility] CLIA [id number] [address] [place] [address] [place] IMMUNOGLOBULINS,IGG,IGA,IGMo n 03-15-2025 IgA [Mass/Vol] 133 mg/dL Normal 70-400 [facility] Comment on above: Order Comment: Speci men Type: BLOOD SPECIMEN Ordering Facility: [facility] Address: [address] [place] [address] Performed By: #### S ERIMM #### [facility] CLIA [id number] [address] [place] [address] [place] IgG [Mass/Vol] 1121 mg/dL Normal 700-1600 [facility] Comment on above: Order Comment: Speci men Type: BLOOD SPECIMEN Ordering Facility: [facility] Address: [address] [place] [address] Performed By: #### S ERIMM #### [facility] CLIA [id number] [address] [place] [address] [place] IgM [Mass/Vol] 306 mg/dL High 40-230 [facility] Comment on above: Order Comment: Speci men Type: BLOOD SPECIMEN Ordering Facility: [facility] Address: [address] [place] [address] Performed By: #### S ERIMM #### [facility] CLIA [id number] [address] [place] [address] [place] KAPPA/OATES,FREE,SERon 2024 Immunoglobulin light chains.kappa.free (S) [Mass/Vol] 20.5 mg/L High 3.3-19.4 [facility] Comment on above: Order Comment: Speci men Type: BLOOD SPECIMEN Ordering Facility: [facility] Address: [address] [place] [address] Result Comment: Rare ly, increased serum free light chains levels may not be detected or accurately quantified due to prozone phenomenon or in high viscosity samples using this immunoturbidimetric assay. Correlation with other laboratory results and clinical findings is recommended. The [place] Free Light Chain was performed using the Binding Site Optilite immunoturbidimetric method. Result obtained with different assay methods or kits cannot be used interchangeably. Performed By: #### K LFRS #### [facility] CLIA [id number] [address] [place] [address] [place] Immunoglobulin light chains.kappa/Immuno globulin light chains.lambda (S) [Mass ratio] 1.39 Normal 0.26-1.65 [facility] Comment on above: Order Comment: Speci men Type: BLOOD SPECIMEN Ordering Facility: [facility] Address: [address] [place] [address] Performed By: #### K LFRS #### [facility] CLIA [id number] [address] [place] [address] [place] Immunoglobulin light chains.lambda.free [Mass/Vol] 14.8 mg/L Normal 5.7-26.3 [facility] Comment on above: Order Comment: Speci men Type: BLOOD SPECIMEN Ordering Facility: [facility] Address: [address] [place] [address] Result Comment: Rare ly, increased serum free light chains levels may not be detected or accurately quantified due to prozone phenomenon or in high viscosity samples using this immunoturbidimetric assay. Correlation with other laboratory results and clinical findings is recommended. The [place] Free Light Chain was performed using the Binding Site Optilite immunoturbidimetric method. Result obtained with different assay methods or kits cannot be used interchangeably. Performed By: #### K LFRS #### [facility] CLIA [id number] [address] [place] [address] [place] LDH SerPl-cCncon 03-15-2025 LDH [Catalytic activity/Vol] 219 U/L High 135-214 [facility] Comment on above: Order Comment: Speci men Type: BLOOD SPECIMEN Ordering Facility: [facility] Address: [address] [place] [address] Performed By: #### 2 532-0, 61000-3 #### [facility] CLIA [id number] [address] [place] [address] [place] MONOCLONAL PROT UR W/INTERPo n 03-15-2025 INTERPRETATION (UMPA) An atypical restricted band is present in the kappa region. The presence of free kappa light chains in the urine is consistent with a kappa-containing monoclonal gammopathy. Normal [facility] Comment on above: Order Comment: Speci men Type: BLOOD SPECIMEN Ordering Facility: [facility] Address: [address] [place] [address] Performed By: #### S ERIMM #### [facility] CLIA [id number] [address] [place] [address] [place] STAFF REVIEW (UMPA) Reviewed by Dr. Johnna Blackwell MD Normal [facility] Comment on above: Order Comment: Speci men Type: BLOOD SPECIMEN Ordering Facility: [facility] Address: [address] [place] [address] Performed By: #### S ERIMM #### [facility] CLIA [id number] [address] [place] [address] [place] UMPA RESULT M protein is present. Abnormal No M p rotein is identified. [facility] Comment on above: Order Comment: Speci men Type: BLOOD SPECIMEN Ordering Facility: [facility] Address: [address] [place] [address] Performed By: #### S ERIMM #### [facility] CLIA [id number] [address] [place] [address] [place] PROTEIN ELECTROPHORESIS SERU M (P)on 03-15-2025 Albumin [Mass/Vol] 4.48 g/dL Normal 3.43-5.41 [facility] Comment on above: Order Comment: Speci men Type: BLOOD SPECIMEN Ordering Facility: [facility] Address: [address] [place] [address] Performed By: #### S ERIMM #### [facility] CLIA [id number] [address] [place] [address] [place] Alpha 1 globulin Elph [Mass/Vol] 0.24 g/dL Normal 0.18-0.43 [facility] Comment on above: Order Comment: Speci men Type: BLOOD SPECIMEN Ordering Facility: [facility] Address: [address] [place] [address] Performed By: #### S ERIMM #### [facility] CLIA [id number] [address] [place] [address] [place] Alpha 2 globulin Elph [Mass/Vol] 0.60 g/dL Normal 0.42-0.98 [facility] Comment on above: Order Comment: Speci men Type: BLOOD SPECIMEN Ordering Facility: [facility] Address: [address] [place] [address] Performed By: #### S ERIMM #### [facility] CLIA [id number] [address] [place] [address] [place] Beta globulin Elph [Mass/Vol] 0.92 g/dL Normal 0.61-1.17 [facility] Comment on above: Order Comment: Speci men Type: BLOOD SPECIMEN Ordering Facility: [facility] Address: [address] [place] [address] Performed By: #### S ERIMM #### [facility] CLIA [id number] [address] [place] [address] [place] Gamma globulin Elph [Mass/Vol] 0.87 g/dL Normal 0.53-1.51 [facility] Comment on above: Order Comment: Speci men Type: BLOOD SPECIMEN Ordering Facility: [facility] Address: [address] [place] [address] Performed By: #### S ERIMM #### [facility] CLIA [id number] [address] [place] [address] [place] INTERPRETATION COMMENT FOR PROTEIN ELECTROPHORESIS The atypical region is relatively poorly defined and may represent an unusual presentation of polyclonal immunoglobulins, but cannot rule out the presence of a low level M protein. If clinically indicated, monoclonal protein analysis and serum free light chain analysis are suggested to evaluate further for monoclonal gammopathy. Normal [facility] Comment on above: Order Comment: Duc og Type: BLOOD SPECIMEN Ordering Facility: [facility] Address: [address] [place] [address] Performed By: #### S ERIMM #### [facility] CLIA [id number] [address] [place] [address] [place] M-PROTEIN LOCATION Normal [facility] Comment on above: Order Comment: Duc og Type: BLOOD SPECIMEN Ordering Facility: [facility] Address: [address] [place] [address] Result Comment: Not Applicable. Performed By: #### S ERIMM #### [facility] CLIA [id number] [address] [place] [address] [place] Protein Fractions [Interp] An atypical region of restricted mobility is identified on protein electrophoresis. Abnormal No definitive M protein is identified on protein electrophores is. [facility] Comment on above: Order Comment: Duc og Type: BLOOD SPECIMEN Ordering Facility: [facility] Address: [address] [place] [address] Performed By: #### S ERIMM #### [facility] CLIA [id number] [address] [place] [address] [place] Protein.monoclonal Elph [Mass/Vol] 0.00 g/dL Normal <=0.00 [facility] Comment on above: Order Comment: Duc earle Type: BLOOD SPECIMEN Ordering Facility: [facility] Address: [address] [place] [address] Performed By: #### S ERIMM #### [facility] CLIA [id number] [address] [place] [address] [place] SPE STAFF REVIEW Reviewed by Dr. Johnna Blackwell MD [facility] Comment on above: Order Comment: Speci men Type: BLOOD SPECIMEN Ordering Facility: [facility] Address: [address] [place] [address] Performed By: #### S ERIMM #### [facility] CLIA [id number] [address] [place] [address] [place] Prot SerPl-mCncon 03-15-2025 Protein [Mass/Vol] 7.1 g/dL Normal 6.3-8.0 [facility] Comment on above: Order Comment: Speci men Type: BLOOD SPECIMEN Ordering Facility: [facility] Address: [address] [place] [address] Performed By: #### 2 885-2, 1950-06 #### [facility] CLIA [id number] [address] [place] [address] [place] Prot Ur-mCncon 03-15-2025 Protein (U) [Mass/Vol] 8 mg/dL Normal 0-20 [facility] Comment on above: Order Comment: Speci men Type: URINE SPECIMEN Ordering Facility: [facility] Address: [address] [place] [address] Performed By: #### 2 888-6 #### [facility] CLIA [id number] [address] [place] [address] [place] URINE PROTEIN ELECTROPHORESI S RANDOM (P)on 03-15-2025 Albumin Elph (U) [Mass fraction] 49.30 % Normal [facility] Comment on above: Order Comment: Speci men Type: URINE SPECIMEN Ordering Facility: [facility] Address: [address] [place] [address] Performed By: #### L [id number] #### [facility] CLIA [id number] [address] [place] [address] [place] Alpha 1 globulin Elph (U) [Mass fraction] 3.14 % Normal [facility] Comment on above: Order Comment: Speci men Type: URINE SPECIMEN Ordering Facility: [facility] Address: [address] [place] [address] Performed By: #### L [id number] #### [facility] CLIA [id number] [address] [place] [address] [place] Alpha 2 globulin Elph (U) [Mass fraction] 9.31 % Normal [facility] Comment on above: Order Comment: Speci men Type: URINE SPECIMEN Ordering Facility: [facility] Address: [address] [place] [address] Performed By: #### L [id number] #### [facility] CLIA [id number] [address] [place] [address] [place] Beta globulin Elph (U) [Mass fraction] 22.98 % Normal [facility] Comment on above: Order Comment: Speci men Type: URINE SPECIMEN Ordering Facility: [facility] Address: [address] [place] [address] Performed By: #### L [id number] #### [facility] CLIA [id number] [address] [place] [address] [place] Gamma globulin Elph (U) [Mass fraction] 15.26 % Normal [facility] Comment on above: Order Comment: Speci men Type: URINE SPECIMEN Ordering Facility: [facility] Address: [address] [place] [address] Performed By: #### L [id number] #### [facility] CLIA [id number] [address] [place] [address] [place] INTERPRETATION COMMENT FOR PROTEIN ELECTROPHORESIS The atypical region is relatively poorly defined and may represent an unusual presentation of polyclonal immunoglobulins, but cannot rule out the presence of a low level M protein. If clinically indicated, monoclonal protein analysis and serum free light chain analysis are suggested to evaluate further for monoclonal gammopathy. Normal [facility] Comment on above: Order Comment: Speci men Type: URINE SPECIMEN Ordering Facility: [facility] Address: [address] [place] [address] Performed By: #### L [id number] #### [facility] CLIA [id number] [address] [place] [address] [place] Protein Fractions Elph Jose Alberto (U) [Interp] An atypical region of restricted mobility is identified on protein electrophoresis. Abnormal No definitive M protein is identified on protein electrophores is. [facility] Comment on above: Order Comment: Speci men Type: URINE SPECIMEN Ordering Facility: [facility] Address: [address] [place] [address] Performed By: #### L [id number] #### [facility] CLIA [id number] [address] [place] [address] OF [place] STAFF REVIEW (URINE ELECTRO) Reviewed by Dr. Gregg Blackwell MD [facility] Comment on above: Order Comment: Speci men Type: URINE SPECIMEN Ordering Facility: [facility] Address: [address] [place] [address] Performed By: #### L [id number] #### [facility] CLIA [id number] [address] [place] [address] OF GAB CNOVSPon 11-11-2024 CNOVSP Visit (SP) Office (FILI) NIGHAT BUCIO ([id number]) 1940 F Date Time Provider Department 11/11/24 10:40 AM ELVIN ARGUETA During your visit today, we recorded the following information about you: Temperature Pulse Respiration Blood pressure 98.6 degrees 85/minute 17/minute 144/81 Weight Height 76.9 kg 1.62 m Elvin Argueta MD 11/11/2024 12:40 PM Signed HISTORY OF PRESENT ILLNESS: Nighatventura Bucio is a 84 year old female referred for evaluation of monoclonal protein on serum SPEP. Discovered as part of work up for hypercalcemia. CARLOS shows monoclonal IgG and IgM. Low level. Labs otherwise normal. Calcium scoring CT scan last year, no adenopathy seen per report. CLINICAL IMPRESSION: Bi clonal monoclonal gammopathy. Low level, other labs ok (hgb, creat) RECOMMENDATION/PLAN: 1. Observe labs for now, recheck MGUS labs 4 months, holing off on further tests for now. Written and verbal health teaching given to patient, patient verbalizes understanding and agrees with treatment plan. PAST MEDICAL HISTORY Diagnosis Date Diverticulosis of colon (without mention of hemorrhage) Internal hemorrhoids without mention of complication Thyroiditis, unspecified treated with radioactive iodine PAST SURGICAL HISTORY Procedure Laterality Date COLONOSCOPY 2003 DILATION AND CURETTAGE DXAND/THER NONOBSTETRIC FAMILY HISTORY Problem Relation Age of Onset Cancer Mother uterine/lung other (prostate surgery [Other]) Father unsure if cancerous Heart Father open heart surgery Arthritis Mother osteoarthristis, allergy to sulf and environmental allergies Allergies Sister Thyroid Sister Thyroid Sister half sis Social History Tobacco Use Smoking status: Never Smokeless tobacco: Never Substance Use Topics Alcohol use: No Drug use: No ALLERGIES: ALLERGIES No Known Allergies CURRENT OUTPATIENT MEDICATIONS: No prescriptions on file. REVIEW OF SYSTEMS: GENERAL: No fever, night sweats, weight loss or malaise. No palpable adenopathy. I spent a total of 45 minutes on the date of the service which included preparing to see the patient, [id number] patient care, completing clinical documentation, obtaining and/or reviewing separately obtained history, performing a medically appropriate examination, counseling and educating the patient/family/caregiv er, ordering medications, tests, or procedures, independently interpreting results (not separately reported), and communicating results to the patient/family/caregiv er. Electronically Signed: Elvin Argueta MD November 11, 2024 10:54 AM Allergies As of Date: 11/11/2024 (No Known Allergies) Date Reviewed: 11/11/2024 Reviewed by: Maida Hurley RN - Fully Assessed Reason for Visit: New Patient [172] Primary Visit Diagnosis:Monoclonal gammopathy [D47.2] Order(s):COMPLETE BLOOD COUNT AND DIFFERENTIAL [SQCBCDIF] Order #: [id number] FUTURE KAPPA/OATES,FREE,SER [SQKLFRS] Order #: [id number] FUTURE BASIC METABOLIC PANEL [SQBMP] Order #: [id number] FUTURE PROTEIN ELECTROPHORESIS SERUM W/INTERP [SQSEPG] Order #: [id number] FUTURE MONOCLONAL PROTEIN, SERUM (BLOOD) [SQSERMPA] Order #: [id number] FUTURE Follow-up and Disposition History for Encounter Date Provider Department Center 11/11/2024 [id number], [facility] Problem List As Of Date 11/11/2024 Noted Resolved H/O thyroiditis [Z86.39] 03/15/2014 Encounter Status:Closed by ELVIN ARGUETA on 11/11/24 Normal [facility] Bone density reportOrdered B y: Trevor Adkins on 11-10-2024 Study report Skeletal system DXA [facility] Imaging Services [address] [place] [address] Dexa Bone Density Study MR#: [id number] Acct: [id number] Name: NIGHAT BUCIO Rep #: [id number] : 1940 F 84 From: Abraham Adkins MD PCP: Dr. Mel Hernandez, Status: REG CLI Study:Dexa Bone Density Study Date of Exam: 11/09/24 Exam# [id number] Ordering Dr: Sabina Hernandez ra, DO PROCEDURE: DEXA BONE DENSITY STUDY 11/09/2024 REASON FOR EXAM: F, age 84 y/o . Postmenopausal. TECHNIQUE: DXA scan of sites with data reported below. REFERENCE LINKS: ISCD Adult Positions COMPARISON: Prior study dated 2022. FINDINGS: BMD and T-SCORES Lumbar spine: 1.126 g/cm2, T-score 0.7 Levels: L1 through L4 Change from prior: Loss of 0.1%. Left femoral neck: 0.569 g/cm2, T-score -2.5 Femoral neck comparison data not recommended for monitoring change. Left total hip: 0.730 g/cm2, T-score -1.7 Change from prior: Loss of 4%. Right femoral neck: 0.607 g/cm2, T-score -2.2 Femoral neck comparison data not recommended for monitoring change. Right total hip: 0.744 g/cm2, T-score -1.6 Change from prior: Loss of 0.7%. The World Health Organization has defined the following categories based on bonedensity: Normal bone density: T-score equal to or greater than -1.0 Osteopenia: T-score between -1.0 and -2.5 Osteoporosis: T-score equal to or less than -2.5 The patient does meet the pharmacological treatment recommendations for prevention of osteoporosis. BD/Dexa Bone Density Study IMPRESSION: OSTEOPOROSIS. Recommend follow-up as clinically warranted. Reading Location: [place] [address] CC: Dr. Mel Hernandez DO ~ Section Plotter Operator: Signed [facility] Breast imaging reportOrdered By: Trevor Adkins on 11-09-2024 Study report [facility] Imaging Services [address] [place] [address] SCRN MAMM (CAD)W/TODD BILAT MR#: [id number] Acct: [id number] Name: NIGHAT BUCIO Rep #: [id number] : 1940 F 84 From: Abraham Adkins MD PCP: Dr. Mel Hernandez DO Status: [facility] Study:SCRN MAMM (CAD)W/TODD BILAT Date of Exa m: 11/09/24 Exam# [id number] Ordering Dr: Sabina Hernandez ra DO EXAM: SCRN MAMM (CAD)W/TODD BILAT DATE: 11/09/2024 CLINICAL HISTORY: F, Age 84 y/o , SCREENING No family history. BREAST CANCER RISK ASSESSMENT: Not assessed. TECHNIQUE: Bilateral screening digital breast tomosynthesis with 2D and 3D images. Computeraided detection. COMPARISON: Prior exam(s) dated November 03, 2023.. FINDINGS: TISSUE DENSITY: The breast tissue is heterogenously dense, which may obscure small masses. Bilateral Breast Mammographic Findings: No significant masses, calcifications or other abnormalities are identified. No suspicious masses, areas of developing architectural distortion, or suspicious calcifications. There has been no significant interval change. BI/SCRN MAMM (CAD)W/TODD BILAT IMPRESSION: OVERALL FINAL ASSESSMENT: BIRADS 1 NEGATIVE RECOMMENDATION: Routine annual follow-up in 1 Year A letter with findings and recommendations will be mailed to the patient. Reading Location: [place] [address] CC: Dr. Mel Hernandez DO ~ Section Plotter Operator: Signed [facility] Dexa Bone Density Studyon Dexa Bone Density Study [facility] Imaging Services [address] [place], [place] [address] Dexa Bone Density Study MR#: [id number] Acct: [id number] Name: NIGHAT BUCIO Rep #: [id number] : 1940 F 84 From: Trevor worley MD PCP: Dr. Mel Hernandez DO Status: [facility] CLI Study: Dexa Bone Density Study Date of Exam: 11/09/24 Exam# [id number] Ordering Dr: Mel Hernandez DO PROCEDURE: DEXA BONE DENSITY STUDY 11/09/2024 REASON FOR EXAM: F, age 84 y/o . Postmenopausal. TECHNIQUE: DXA scan of sites with data reported below. REFERENCE LINKS: ISCD Adult Positions COMPARISON: Prior study dated 2022. FINDINGS: BMD and T-SCORES Lumbar spine: 1.126 g/cm2, T-score 0.7 Levels: L1 through L4 Change from prior: Loss of 0.1%. Left femoral neck: 0.569 g/cm2, T-score -2.5 Femoral neck comparison data not recommended for monitoring change. Left total hip: 0.730 g/cm2, T-score -1.7 Change from prior: Loss of 4%. Right femoral neck: 0.607 g/cm2, T-score -2.2 Femoral neck comparison data not recommended for monitoring change. Right total hip: 0.744 g/cm2, T-score -1.6 Change from prior: Loss of 0.7%. The World Health Organization has defined the following categories based on bone density: Normal bone density: T-score equal to or greater than -1.0 Osteopenia: T-score between -1.0 and -2.5 Osteoporosis: T-score equal to or less than -2.5 The patient does meet the pharmacological treatment recommendations for prevention of osteoporosis. BD/Dexa Bone Density Study IMPRESSION: OSTEOPOROSIS. Recommend follow-up as clinically warranted. Reading Location: [place] [address] CC: Dr. Mel Hernandez DO Section Plotter Operator: Signed Normal [facility] SCRN MAMM (CAD)W/TODD BILATo n 11-09-2024 SCRN MAMM (CAD)W/OTDD BILAT [facility] Imaging Services [address] [place], [place] [id number] SCRN MAMM (CAD)W/TODD BILAT MR#: [id number] Acct: [id number] Name: NIGHAT BUCIO Rep #: [id number] : 1940 F 84 From: Trevor worley MD PCP: Dr. Mel Hernandez DO Status: REG CLI Study: SCRN MAMM (CAD)W/TODD BILAT Date of Exam: 10/31 Exam# [id number] Ordering Dr: Mel Hernandez DO EXAM: SCRN MAMM (CAD)W/TODD BILAT DATE: 11/09/2024 CLINICAL HISTORY: F, Age 84 y/o , SCREENING No family history. BREAST CANCER RISK ASSESSMENT: Not assessed. TECHNIQUE: Bilateral screening digital breast tomosynthesis with 2D and 3D images. Computer aided detection. COMPARISON: Prior exam(s) dated November 03, 2023.. FINDINGS: TISSUE DENSITY: The breast tissue is heterogenously dense, which may obscure small masses. Bilateral Breast Mammographic Findings: No significant masses, calcifications or other abnormalities are identified. No suspicious masses, areas of developing architectural distortion, or suspicious calcifications. There has been no significant interval change. BI/SCRN MAMM (CAD)W/TODD BILAT IMPRESSION: OVERALL FINAL ASSESSMENT: BIRADS 1 NEGATIVE RECOMMENDATION: Routine annual follow-up in 1 Year A letter with findings and recommendations will be mailed to the patient. Reading Location: [place] [address] CC: Dr. Mel Hernandez DO Section Plotter Operator: Signed Normal [facility] Parathyroid Scanon Parathyroid scan [facility] Imaging Services [address] [place], [place] [address] Parathyroid Scan MR#: [id number] Acct: [id number] Name: NIGHAT BUCIO Rep #: [id number] : 1940 F 84 From: Guanako Balderas PCP: Dr. Mel Hernandez DO Status: REG CLI Study: Parathyroid Scan Date of Exam: 11/03/24 Exam# [id number] Ordering Dr: Mel Hernandez DO PROCEDURE: PARATHYROID SCAN REASON FOR EXAM: HYPERPARATHYROIDISM. Elevated calcium level. TECHNIQUE: Nuclear medicine parathyroid imaging performed following intravenous technetium-99m sestamibi administration. Immediate and delayed anterior imaging of the neck were obtained. RADIOPHARMACEUTICAL: Technetium 99 M sestamibi DOSE 28mCi intravenous. COMPARISON: None. FINDINGS: On immediate images, normal and symmetric appearance of both thyroid lobes is seen, without focus of abnormal uptake. Delayed images show normal decrease over time, without residual focus to suggest hyperactive parathyroid tissue. NM/Parathyroid Scan IMPRESSION: Negative examination, without evidence of hyperactive parathyroid tissue. Reading Location: [address] CC: Dr. Mel Hernandez DO Section Plotter Operator: Signed Normal [facility] CNPNon 10-20-2024 ALINEN Telephone (FILI) NIGHAT BUCIO ([id number]) 1940 F Date Time Provider Department 10/20/24 ELVIN ARGUETA During your visit today, we recorded the following information about you: Madina Noonan 10/20/2024 2:04 PM Signed I called and left a message for Nighat to call back to scheduled her new patient visit with . 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 When patient calls back, please schedule first open new patient spot with . records in the new pateint folder at the hem/onc front desk auxiliary Madina Bravo Stefani Maldonado 10/20/2024 4:08 PM Signed Scheduled with patient Allergies As of Date: 10/20/2024 (No Known Allergies) Date Reviewed: 10/25/2020 Reviewed by: Mart Campo APRN.COOPERATIVE EXTENSION AGENT - Fully Assessed Reason for Visit: New Patient [172] Problem List As Of Date 10/20/2024 Noted Resolved H/O thyroiditis [Z86.39] 03/15/2014 Encounter Status:Closed by STEFANI ELLIOTT on 10/20/24 Normal [facility] CT CARDIAC SCORING WO IV CON TRASTon 09-16-2023 CT CARDIAC SCORING WO IV CONTRAST Interpreted By: Ari Yarbrough, STUDY: CT CARDIAC SCORING WO IV CONTRAST; 09/16/2023 10:19 am INDICATION: Signs/Symptoms:HYPERLI PIDEMIA. COMPARISON: None. ACCESSION NUMBER(S): [id number] ORDERING CLINICIAN: MEL HERNANDEZ TECHNIQUE: Using prospective ECG gating, CT scan of the coronary arteries was performed without intravenous contrast. Coronary calcium scoring was performed according to the method of Agatston. FINDINGS: The score and distribution of calcium in the coronary arteries is as follows: LM 0 LAD 77.27 LCx 7.3 RCA 0 Total 84.57 The heart size is normal and there is no pericardial effusion. The chest vasculature is unremarkable.There is no significant mediastinal or hilar adenopathy. Mild bronchiectasis extends to the middle lobe and right lower lobe posteromedially. There is also interstitial prominence as well discrete linear opacities most likely from the visualized upper abdominal contents are within normal limits. The bony structures are intact. IMPRESSION: Coronary artery calcium score of 84.57 Coronary artery calcium scoring may be helpful in predicting the risk for future coronary heart disease events. According to the [employer] Clinical Expert Consensus Task Force, such testing provides important prognostic information in patients with more than one coronary heart disease risk factor. The coronary artery calcium score correlates with the annual risk of a non-fatal myocardial infarction or coronary heart disease . Coronary artery score Annual Risk 0-99 0.4% 100-399 1.3% >400 2.4% These three breakpoints correspond to lower, intermediate and high risk states for future coronary events. Such information should be used, along with appropriate clinical judgment, to make decisions regarding the intensity of risk factor management strategies to treat blood lipids and to modify other non-lipid coronary risk factors. Reference: Tyrone P et al. Circulation. 2007; 115:402-426 Signed by: Ari Yarbrough 09/17/2023 3:42 PM Dictation workstation: [id number] [facility] POTASSIUM SERUM ([id number])Order ed By: Instructor Decorating on 02-10-2023 Potassium [Moles/Vol] 4.4 mmol/L Normal 3.5-5.2 [facility]; [facility] Work Phone: Comment on above: recheck in 1 month; PATIENT NOT FASTINGPERFORMED BY: Dhir Diamonds6370 [facility] [id number] POTASSIUM SERUM ([id number])Order ed By: Instructor Decorating on 12-31-2022 Potassium [Moles/Vol] 5.3 mmol/L Abnormal 3.5-5.2 [facility]; [facility] Work Phone: Comment on above: PATIENT NOT FASTINGP ERFORMED BY: web care [id number] [facility] [id number] GGT (GAMMA GLUTAMYLTRANSFERA SE) ([id number])Ordered By: Instructor Decorating on 12-30-2022 Gamma glutamyl transferase [Catalytic activity/Vol] 26 U/L Normal 0-60 [facility]; [facility] Work Phone: Comment on above: PATIENT NOT FASTINGP ERFORMED BY: web care [employer] [facility] [id number] HGB A1C ([id number])Ordered By: S ystem Voltage Regulator Assembler on 12-30-2022 HbA1c (Bld) [Mass fraction] 6.1 % Abnormal 4.8-5.6 [facility]; [facility] Work Phone: Comment on above: . Prediabetes: 5.7 - 6.4 Diabetes: >6.4 Glycemic control for adults with diabetes: <7.0 PATIENT NOT FASTINGP ERFORMED BY: MARIAA [facility] Ldfkaj[address] RoadDublin [place] [id number] LIPID PANEL ([id number])Ordered B y: Instructor Decorating on 12-30-2022 Cholesterol [Mass/Vol] 267 mg/dL Abnormal 100-199 [facility]; [facility] Work Phone: Comment on above: PATIENT NOT FASTINGP ERFORMED BY: CB [facility] Gtnois[address] RoadDublin [place] [id number] Cholesterol in HDL [Mass/Vol] 95 mg/dL Normal [facility]; [facility] Work Phone: Comment on above: PATIENT NOT FASTINGP ERFORMED BY: CB [facility] Sqvuiw49[address] RoadDublin [place] [id number] Triglyceride [Mass/Vol] 82 mg/dL Normal 0-149 [facility]; [facility] Work Phone: Comment on above: PATIENT NOT FASTINGP ERFORMED BY: CB [facility] Nfeauw57[address]Dublin [place] [id number] LIPID PANEL ([id number]) 13 mg/dL Normal 5-40 Compr ensive [facility]; [facility] Work Phone: Comment on above: PATIENT NOT FASTINGP ERFORMED BY: CB [facility] Kivohg039[address]Dublin [place] [id number] LIPID PANEL (98658) 159 mg/dL Abnormal 0-99 Compr [facility]; [facility] Work Phone: Comment on above: PATIENT NOT FASTINGP ERFORMED BY: CB [facility] Jfmndc6[address]Dublin [place] [id number] LIPID PANEL (45350) 1.7 {ratio} Normal 0.0-3.2 [facility]; [facility] Work Phone: Comment on above: LDL/HDL Ratio Men Wo men 1/2 Avg.Risk 1.0 1.5 Avg.Risk 3.6 3.2 2X Avg.Risk 6.2 5.0 3X Avg.Risk 8.0 6.1 PATIENT NOT FASTINGP ERFORMED BY: MARIAA Mares[address] [facility] [id number] METABOLIC PANEL, COMPREHENSI VE ([id number])Ordered By: Instructor Decorating on 12-30-2022 Albumin [Mass/Vol] 4.7 g/dL Normal 3.7-4.7 [facility] Internal Medicine; [facility] Work Phone: Comment on above: PATIENT NOT FASTINGP ERFORMED BY: MARIAA Fraustolin6370 [facility] [place] [id number] Information: SRC:UR Albumin/Globulin [Mass ratio] 2.0 {ratio} Normal 1.2-2.2 [facility]; [facility] Work Phone: Comment on above: PATIENT NOT FASTINGP ERFORMED BY: MARIAA Mares6370 [facility] [id number] Information: SRC:UR ALP [Catalytic activity/Vol] 142 U/L Abnormal 44-121 [facility]; [facility] Work Phone: Comment on above: PATIENT NOT FASTINGP ERFORMED BY: MARIAA Mares6370 [facility] [id number] Information: SRC:UR ALT [Catalytic activity/Vol] 18 U/L Normal 0-32 [facility]; [facility] Work Phone: Comment on above: PATIENT NOT FASTINGP ERFORMED BY: MARIAA Fraustolin[address] [facility] [id number] Information: SRC:UR AST [Catalytic activity/Vol] 19 U/L Normal 0-40 [facility]; [facility] Work Phone: Comment on above: PATIENT NOT FASTINGP ERFORMED BY: MARIAA Fraustolin[address] [facility] [id number] Information: SRC:UR Bilirubin [Mass/Vol] 0.3 mg/dL Normal 0.0-1.2 [facility]; [facility] Work Phone: Comment on above: PATIENT NOT FASTINGP ERFORMED BY: MARIAA [facility] Twjiwa[address] [facility] [id number] Information: SRC:UR Calcium [Mass/Vol] 10.6 mg/dL Abnormal 8.7-10.3 [facility] Internal Medicine; [facility] Work Phone: Comment on above: PATIENT NOT FASTINGP ERFORMED BY: CB [facility] Dovbsw84[address] [facility] [id number] Information: SRC:UR Chloride [Moles/Vol] 102 mmol/L Normal 96-106 [facility]; [facility] Work Phone: Comment on above: PATIENT NOT FASTINGP ERFORMED BY: CB [facility] Mojcdp6703 [facility] [id number] Information: SRC:UR CO2 [Moles/Vol] 26 mmol/L Normal 20-29 Comprehen [facility] Internal Medicine; [facility] Work Phone: Comment on above: PATIENT NOT FASTINGP ERFORMED BY: CB [facility] Ejrwsw4777 [facility] [id number] Information: SRC:UR Creatinine [Mass/Vol] 0.70 mg/dL Normal 0.57-1.00 [facility]; [facility] Work Phone: Comment on above: PATIENT NOT FASTINGP ERFORMED BY: CB [facility] Ttlnbb8972 [facility] [id number] Information: SRC:UR GFR/1.73 sq M.predicted among non-blacks MDRD (S/P/Bld) [Vol rate/Area] 87 mL/min/{1.73_m2} Normal Comprehensiv e [facility]; [facility] Work Phone: Comment on above: PATIENT NOT FASTINGP ERFORMED BY: CB [facility] Qgjklo[address] [facility] [id number] Information: SRC:UR Globulin (S) [Mass/Vol] 2.4 g/dL Normal 1.5-4.5 [facility]; [facility] Work Phone: Comment on above: PATIENT NOT FASTINGP ERFORMED BY: MARIAA Cortes [facility] [id number] Information: SRC:UR Glucose [Mass/Vol] 102 mg/dL Abnormal 70-99 [facility] Internal Medicine; [facility] Work Phone: Comment on above: PATIENT NOT FASTINGP ERFORMED BY: MARIAA Mares6370 [facility] [id number] Information: SRC:UR Potassium [Moles/Vol] 5.7 mmol/L Abnormal 3.5-5.2 [facility]; [facility] Work Phone: Comment on above: Client Requested [place] g PATIENT NOT FASTINGP ERFORMED BY: MARIAA Fraustolin6370 [facility] [id number] Information: SRC:UR Protein [Mass/Vol] 7.1 g/dL Normal 6.0-8.5 [facility] Internal Medicine; [facility] Work Phone: Comment on above: PATIENT NOT FASTINGP ERFORMED BY: MARIAA Fraustolin6370 [facility] [id number] Information: SRC:UR Sodium [Moles/Vol] 140 mmol/L Normal 134-144 [facility] Internal Medicine; [facility] Work Phone: Comment on above: PATIENT NOT FASTINGP ERFORMED BY: MARIAA Fraustolin6370 [facility] [id number] Information: SRC:UR Urea nitrogen [Mass/Vol] 18 mg/dL Normal 8-27 [facility]; [facility] Work Phone: Comment on above: PATIENT NOT FASTINGP ERFORMED BY: MARIAA Fraustolin6370 [facility] [id number] Information: SRC:UR Urea nitrogen/Creatinine [Mass ratio] 26 mg/mg Normal 12-28 [facility]; [facility] Work Phone: Comment on above: PATIENT NOT FASTINGP ERFORMED BY: MARIAA Estebanisha FraustoFfkymm19[address] RoadDublin [place] [id number] Information: SRC:UR URINALYSIS, W/ MICRO ([id number]) Ordered By: Instructor Decorating on 12-30-2022 Appearance (U) Clear Normal Comprehens mattie [facility]; [facility] Work Phone: Comment on above: PATIENT NOT FASTINGP ERFORMED BY: MARIAA Fraustolin6[address] RoadD[address] [place] [id number] Bilirubin Ql (U) Negative Normal Comprehe nsive Internal Medicine; [facility] Work Phone: Comment on above: PATIENT NOT FASTINGP ERFORMED BY: MARIAA Fraustolin6[address] RoadD[address] [place] [id number] Color (U) Yellow Normal [facility]; [facility] Work Phone: Comment on above: PATIENT NOT FASTINGP ERFORMED BY: MARIAA Fraustolin6[address] RoadSentara Albem[facility]le Medical Centerin [place] [id number] Glucose Ql (U) Negative Normal Comprehens mattie [facility]; [facility] Work Phone: Comment on above: PATIENT NOT FASTINGP ERFORMED BY: MARIAA Fraustolin6[address]blin [place] [id number] Hemoglobin Ql (U) Negative Normal Compreh ensive [facility]; [facility] Work Phone: Comment on above: PATIENT NOT FASTINGP ERFORMED BY: MARIAA Fraustolin6370 [address] RoadDuin [place] [id number] Ketones Ql (U) Negative Normal Comprehens [facility]; [facility] Work Phone: Comment on above: PATIENT NOT FASTINGP ERFORMED BY: MARIAA Joanjuan c FraustoIvgmna5475 Kam RoadDublin [place] [id number] Leukocyte esterase Test strip Ql (U) Negative Normal [facility]; [facility] Work Phone: Comment on above: PATIENT NOT FASTINGP ERFORMED BY: MARIAA Fraustolin6370 Kam RoadDublin [place] [id number] Microscopic observation LM Nom (Urine sed) MICRON Normal [facility]; [facility] Work Phone: Comment on above: Microscopic follows if indicated. PATIENT NOT FASTINGP ERFORMED BY: MARIAA [facility] Eyfpxx6538 Kam RoadDublin [place] [id number] Microscopic observation LM Nom (Urine sed) See below: Normal [facility]; [facility] Work Phone: Comment on above: Microscopic was leidy cated and was performed. PATIENT NOT FASTINGP ERFORMED BY: CB [facility] Ekhysa9948 Kam RoadDublin [place] [id number] Nitrite Ql (U) Negative Normal Comprehens [facility]; [facility] Work Phone: Comment on above: PATIENT NOT FASTINGP ERFORMED BY: MARIAA [facility] Jihmgk0574 Kam RoadDublin [place] [id number] pH (U) 7.0 [pH] Normal 5.0-7.5 [facility]; [facility] Work Phone: Comment on above: PATIENT NOT FASTINGP ERFORMED BY: CB [facility] Gzhunm0726 Kam RoadDublin [place] [id number] Protein Ql (U) Negative Normal Comprehens [facility]; [facility] Work Phone: Comment on above: PATIENT NOT FASTINGP ERFORMED BY: MARIAA [facility] Uurvlr9725 Kam RoadDublin [place] [id number] Specific gravity (U) [Rel density] 1.016 1 Normal 1.005-1.030 [facility]; [facility] Work Phone: Comment on above: PATIENT NOT FASTINGP ERFORMED BY: CB [facility] Ralvmo5848 Kam RoadDublin [place] [id number] Urobilinogen (U) [Mass/Vol] 0.2 mg/dL Normal 0.2-1.0 [facility]; [facility] Work Phone: Comment on above: PATIENT NOT FASTINGP ERFORMED BY: CB [facility] Brmlhm9266 Kam RoadDublin [place] [id number] URINE ATIYA CULTURE (BRAYAN COL COUNT) ([id number])Ordered By: Instructor Decorating on 12-30-2022 Bacteria identified Cx Nom (U) Final report Normal [facility]; [facility] Work Phone: Comment on above: PATIENT NOT FASTINGP ERFORMED BY: MARIAA [facility]aint [facility] Hqrjwi9612 [facility] [id number] Bacteria identified Cx Nom (U) MUG Normal [facility]; [facility] Work Phone: Comment on above: Mixed urogenital shaq ra2,000 Colonies/mL PATIENT NOT FASTINGP ERFORMED BY: [address] [id number] CBC W/AUTO DIFF WBC ([id number])O rdered By: Instructor Decorating on 12-12-2022 Basophils (Bld) [#/Vol] 0.1 10*3/uL Normal 0.0-0.2 [facility]; [facility] Work Phone: Comment on above: PATIENT WAS FASTINGP ERFORMED BY: [address] [id number] Information: SRC:UR Basophils/100 WBC (Bld) 1 % Normal [facility]; [facility] Work Phone: Comment on above: PATIENT WAS FASTINGP ERFORMED BY: Joan[address] [id number] Information: SRC:UR Eosinophils (Bld) [#/Vol] 0.1 10*3/uL Normal 0.0-0.4 [facility]; [facility] Work Phone: Comment on above: PATIENT WAS FASTINGP ERFORMED BY: [place] [id number] [facility] [id number] Information: SRC:UR Eosinophils/100 WBC (Bld) 2 % Normal [facility]; [facility] Work Phone: Comment on above: PATIENT WAS FASTINGP ERFORMED BY: [place] [id number] [facility] [id number] Information: SRC:UR Erythrocyte distribution width (RBC) [Ratio] 13.1 % Normal 11.7-15.4 [facility]; [facility] Work Phone: Comment on above: PATIENT WAS FASTINGP ERFORMED BY: MARIAA Mares6370 [facility] [id number] Information: SRC:UR Hematocrit (Bld) [Volume fraction] 43.3 % Normal 34.0-46.6 [facility]; [facility] Work Phone: Comment on above: PATIENT WAS FASTINGP ERFORMED BY: MARIAA Frausto[address] [id number] Information: SRC:UR Hemoglobin (Bld) [Mass/Vol] 14.5 g/dL Normal 11.1-15.9 [facility]; [facility] Work Phone: Comment on above: PATIENT WAS FASTINGP ERFORMED BY: MARIAA Orellana Hzpiew[address] [id number] Information: SRC:UR Immature granulocytes (Bld) [#/Vol] 0.0 10*3/uL Normal 0.0-0.1 [facility]; [facility] Work Phone: Comment on above: PATIENT WAS FASTINGP ERFORMED BY: MARIAA Frausto[address] [id number] Information: SRC:UR Immature granulocytes/100 WBC (Bld) 0 % Normal [facility]; [facility] Work Phone: Comment on above: PATIENT WAS FASTINGP ERFORMED BY: MARIAA Orellana Csjcxa59[address] [id number] Information: SRC:UR Lymphocytes (Bld) [#/Vol] 1.5 10*3/uL Normal 0.7-3.1 [facility]; [facility] Work Phone: Comment on above: PATIENT WAS FASTINGP ERFORMED BY: MARIAA Orellana Zatqxx6556 [facility] [id number] Information: SRC:UR Lymphocytes/100 WBC (Bld) 28 % Normal [facility]; [facility] Work Phone: Comment on above: PATIENT WAS FASTINGP ERFORMED BY: MARIAA Esteban Hicabh2640 [facility] [id number] Information: SRC:UR MCH (RBC) [Entitic mass] 30.9 pg Normal 26.6-33.0 [facility]; [facility] Work Phone: Comment on above: PATIENT WAS FASTINGP ERFORMED BY: MARIAA Joansaint [facility] Sctjns7208 [facility] [id number] Information: SRC:UR MCHC (RBC) [Mass/Vol] 33.5 g/dL Normal 31.5-35.7 [facility]; [facility] Work Phone: Comment on above: PATIENT WAS FASTINGP ERFORMED BY: MARIAA Joanmassiel Nrggrg3158 [facility] [id number] Information: SRC:UR MCV (RBC) [Entitic vol] 92 fL Normal 79-97 [facility]; [facility] Work Phone: Comment on above: PATIENT WAS FASTINGP ERFORMED BY: MARIAA Joanmassiel Riseil1320 [facility] [id number] Information: SRC:UR Monocytes (Bld) [#/Vol] 0.5 10*3/uL Normal 0.1-0.9 [facility]; [facility] Work Phone: Comment on above: PATIENT WAS FASTINGP ERFORMED BY: MARIAA Joan[address] [id number] Information: SRC:UR Monocytes/100 WBC (Bld) 9 % Normal [facility]; [facility] Work Phone: Comment on above: PATIENT WAS FASTINGP ERFORMED BY: MARIAA Joansaint [facility] Fhghbb0125 [facility] [id number] Information: SRC:UR Neutrophils (Bld) [#/Vol] 3.3 10*3/uL Normal 1.4-7.0 [facility]; [facility] Work Phone: Comment on above: PATIENT WAS FASTINGP ERFORMED BY: [facility]6370 [facility] [id number] Information: SRC:UR Neutrophils/100 WBC (Bld) 60 % Normal [facility] Internal [facility]; [facility] Work Phone: Comment on above: PATIENT WAS FASTINGP ERFORMED BY: Joansaint [facility] Nettgx6411 [facility] [id number] Information: SRC:UR Platelets (Bld) [#/Vol] 211 10*3/uL Normal 150-450 [facility]; [facility] Work Phone: Comment on above: PATIENT WAS FASTINGP ERFORMED BY: MARIAA [place] [id number] [facility] [id number] Information: SRC:UR RBC (Bld) [#/Vol] 4.70 10*6/uL Normal 3.77-5.28 [facility]; [facility] Work Phone: Comment on above: PATIENT WAS FASTINGP ERFORMED BY: [facility]6370 [facility] [id number] Information: SRC:UR WBC (Bld) [#/Vol] 5.4 10*3/uL Normal 3.4-10.8 [facility] Internal Medicine; [facility] Work Phone: Comment on above: PATIENT WAS FASTINGP ERFORMED BY: [facility]6370 [facility] [id number] Information: SRC:UR FREE TRIIDOTHYRONINE (T3) ([id number] [id number])Ordered By: Instructor Decorating on 12-12-2022 Free T3 [Mass/Vol] 3.0 pg/mL Normal 2.0-4.4 [facility] Internal Medicine; [facility] Work Phone: Comment on above: PATIENT WAS FASTINGP ERFORMED BY: [facility]Tr[facility]6370 [facility] [id number] METABOLIC PANEL, COMPREHENSI VE ([id number])Ordered By: Instructor Decorating on 12-12-2022 Albumin [Mass/Vol] 4.4 g/dL Normal 3.7-4.7 [facility]; [facility] Work Phone: Comment on above: Please note refere nce interval change PATIENT WAS FASTINGP ERFORMED BY: CB [facility] Xpgaha0539 [address] RoadDublin [place] [id number] Albumin/Globulin [Mass ratio] 1.8 {ratio} Normal 1.2-2.2 [facility]; [facility] Work Phone: Comment on above: PATIENT WAS FASTINGP ERFORMED BY: CB [facility] Fivzti3306 [address] RoadDublin [place] [id number] ALP [Catalytic activity/Vol] 139 U/L Abnormal 44-121 [facility]; [facility] Work Phone: Comment on above: PATIENT WAS FASTINGP ERFORMED BY: CB [facility] Unyhop5530 Kam RoadDublin [place] [id number] ALT [Catalytic activity/Vol] 17 U/L Normal 0-32 [facility]; [facility] Work Phone: Comment on above: PATIENT WAS FASTINGP ERFORMED BY: CB [facility] Lqlsuy7382 Kam RoadDublin [place] [id number] AST [Catalytic activity/Vol] 18 U/L Normal 0-40 [facility]; [facility] Work Phone: Comment on above: PATIENT WAS FASTINGP ERFORMED BY: CB [facility] Ybjkkp3545 Kam RoadDublin [place] [id number] Bilirubin [Mass/Vol] 0.3 mg/dL Normal 0.0-1.2 [facility]; [facility] Work Phone: Comment on above: PATIENT WAS FASTINGP ERFORMED BY: CB [facility] Ycvcsw2192 Kam RoadDublin [place] [id number] Calcium [Mass/Vol] 10.2 mg/dL Normal 8.7-10.3 [facility]; [facility] Work Phone: Comment on above: PATIENT WAS FASTINGP ERFORMED BY: CB [facility] Deqdnm6779 Kam RoadDublin [place] [id number] Chloride [Moles/Vol] 101 mmol/L Normal 96-106 [facility]; [facility] Work Phone: Comment on above: PATIENT WAS FASTINGP ERFORMED BY: MARIAA Mares6370 [facility] [id number] CO2 [Moles/Vol] 23 mmol/L Normal 20-29 Comprehen [facility]; [facility] Work Phone: Comment on above: PATIENT WAS FASTINGP ERFORMED BY: Esteban Lwbydr7350 [facility] [id number] Creatinine [Mass/Vol] 0.85 mg/dL Normal 0.57-1.00 [facility]; [facility] Work Phone: Comment on above: PATIENT WAS FASTINGP ERFORMED BY: MARIAA Joansaint [facility] Xqmzhk0094 [facility] [id number] GFR/1.73 sq M.predicted among non-blacks MDRD (S/P/Bld) [Vol rate/Area] 69 mL/min/{1.73_m2} Normal Comprehensiv e Internal Medicine; [facility] Work Phone: Comment on above: PATIENT WAS FASTINGP ERFORMED BY: MARIAA Esteban Dzikkr6947 [facility] [id number] Globulin (S) [Mass/Vol] 2.5 g/dL Normal 1.5-4.5 [facility]; [facility] Work Phone: Comment on above: PATIENT WAS FASTINGP ERFORMED BY: JoanTr[facility]6370 [facility] [id number] Glucose [Mass/Vol] 97 mg/dL Normal 70-99 [facility]; [facility] Work Phone: Comment on above: PATIENT WAS FASTINGP ERFORMED BY: MARIAA Orellana Esslvg9405 [facility] [id number] Potassium [Moles/Vol] 5.0 mmol/L Normal 3.5-5.2 [facility]; [facility] Work Phone: Comment on above: PATIENT WAS FASTINGP ERFORMED BY: MARIAA Labcoisha Oakvib0763 [address] RoadDublin [place] [id number] Protein [Mass/Vol] 6.9 g/dL Normal 6.0-8.5 [facility] Internal [facility]; [facility] Work Phone: Comment on above: PATIENT WAS FASTINGP ERFORMED BY: MARIAA [facility] Gjuquz2125 Kam RoadDublin [place] [id number] Sodium [Moles/Vol] 140 mmol/L Normal 134-144 [facility]; [facility] Work Phone: Comment on above: PATIENT WAS FASTINGP ERFORMED BY: MARIAA Labcoisha FraustoOzqwej3962 Kam RoadDublin [place] [id number] Urea nitrogen [Mass/Vol] 28 mg/dL Abnormal 8- [facility]; [facility] Work Phone: Comment on above: PATIENT WAS FASTINGP ERFORMED BY: MARIAA Lab[facility] Ygortn6291 [address] RoadDublin [place] [id number] Urea nitrogen/Creatinine [Mass ratio] 33 mg/mg Abnormal 12- [facility]; [facility] Work Phone: Comment on above: PATIENT WAS FASTINGP ERFORMED BY: MARIAA Labjuan c FraustoImxtao1062 [address] RoadDublin [place] [id number] T4, FREE (THYROXINE) (32258) Ordered By: Instructor Decorating on 12-12-2022 Free T4 [Mass/Vol] 1.29 ng/dL Normal 0.82-1.77 [facility]; [facility] Work Phone: Comment on above: PATIENT WAS FASTINGP ERFORMED BY: MARIAA [facility] Srozje2191 [address] RoadDublin [place] [id number] URINALYSIS ([id number])Ordered By : Instructor Decorating on 12-12-2022 Appearance (U) Clear Normal Comprehens [facility] Internal [facility]; [facility] Work Phone: Comment on above: PATIENT WAS FASTINGP ERFORMED BY: MARIAA [facility] Sjxdtq5140 [address] RoadDublin [place] [id number] Bilirubin Ql (U) Negative Normal Comprehe nsive Internal Medicine; [facility] Work Phone: Comment on above: PATIENT WAS FASTINGP ERFORMED BY: MARIAA Mares6370 [address] RoadDublin [place] [id number] Color (U) Yellow Normal [facility]; [facility] Work Phone: Comment on above: PATIENT WAS FASTINGP ERFORMED BY: MARIAA Mares6370 [address] RoadDublin [place] [id number] Glucose Ql (U) Negative Normal Comprehens mattie [facility]; [facility] Work Phone: Comment on above: PATIENT WAS FASTINGP ERFORMED BY: MARIAA Mares6370 [address] RoadDublin [place] [id number] Hemoglobin Ql (U) Negative Normal Compreh ensive Internal Medicine; [facility] Work Phone: Comment on above: PATIENT WAS FASTINGP ERFORMED BY: MARIAA Cortes Kam Roadblin [place] [id number] Ketones Ql (U) Negative Normal Comprehens mattie [facility]; [facility] Work Phone: Comment on above: PATIENT WAS FASTINGP ERFORMED BY: MARIAA Mares6370 Kam [facility] Centerblin [place] [id number] Leukocyte esterase Test strip Ql (U) 1+ Abnormal [facility]; [facility] Work Phone: Comment on above: PATIENT WAS FASTINGP ERFORMED BY: MARIAA Mares6370 Kam [facility]in [place] [id number] Microscopic observation LM Nom (Urine sed) See below: Normal [facility]; [facility] Work Phone: Comment on above: Microscopic was leidy cated and was performed. PATIENT WAS FASTINGP ERFORMED BY: MARIAA Fraustolin6370 [address] RoadDublin [place] [id number] Nitrite Ql (U) Positive Abnormal Comprehens mattie [facility]; [facility] Work Phone: Comment on above: PATIENT WAS FASTINGP ERFORMED BY: MARIAA Mares6370 [address] RoadDublin [place] [id number] pH (U) 6.5 [pH] Normal 5.0-7.5 [facility]; [facility] Work Phone: Comment on above: PATIENT WAS FASTINGP ERFORMED BY: [facility]ustain360[facility] Kxxjwz2119 [facility] [id number] Protein Ql (U) Negative Normal Comprehens mattie [facility]; [facility] Work Phone: Comment on above: PATIENT WAS FASTINGP ERFORMED BY: [facility]6370 [facility] [id number] Specific gravity (U) [Rel density] 1.017 1 Normal 1.005-1.030 [facility]; [facility] Work Phone: Comment on above: PATIENT WAS FASTINGP ERFORMED BY: [facility]360[facility]6370 [facility] [id number] Urobilinogen (U) [Mass/Vol] 0.2 mg/dL Normal 0.2-1.0 [facility]; [facility] Work Phone: Comment on above: PATIENT WAS FASTINGP ERFORMED BY: [facility]360[facility] Qvcebo4286 [facility] [id number] URINE ATIYA CULTURE-IDENTIFICA [place] ([id number])Ordered By: Instructor Decorating on 12-12-2022 Bacteria identified Cx Nom (U) Final report Abnormal [facility]; [facility] Work Phone: Comment on above: PATIENT WAS FASTINGP ERFORMED BY: [facility]360[facility] Wszzmc8631 [facility] [id number] Bacteria identified Cx Nom (U) Escherichia coli Abnormal [facility]; [facility] Work Phone: Comment on above: Greater than 100,000 colony forming units per mLCefazolin <=4 ug/mLCefazolin with an DENISSE <=16 predicts susceptibility to the oral agentscefaclor, cefdinir, cefpodoxime, cefprozil, cefuroxime, cephalexin,and loracarbef when used for therapy of uncomplicated urinary tractinfections due to E. coli, Klebsiella pneumoniae, and Proteusmirabilis. PATIENT WAS FASTINGP ERFORMED BY: [employer] Cjfdab5019 [address] the starsblin [place] [id number] Other Antibiotic [Susc] MIHEAD Normal [facility]; [facility] Work Phone: Comment on above: S = Susceptible; I = Intermediate; R = Resistant P = Positive; N = Negative MICS are expressed in micrograms per mL Antibiotic RSLT#1 RSLT#2 RSLT#3 RSLT#4Amoxicillin/Clavulanic Acid SAmpicillin SCefepime SCeftriaxone SCefuroxime SCiprofloxacin SErtapenem SGentamicin SImipenem SLevofloxacin SMeropenem SNitrofurantoin SPiperacillin/Tazobactam STetracycline STobramycin STrimethoprim/Sulfa S PATIENT WAS FASTINGP ERFORMED BY: [employer] Awvqxi8682 [address] the starsin [place] [id number] VITAMIN B12 AND FOLATES (826 07)Ordered By: Instructor Decorating on 12-12-2022 Cobalamin (Vitamin B12) [Mass/Vol] 1254 pg/mL Abnormal 232-1245 [facility]; [facility] Work Phone: Comment on above: PATIENT WAS FASTINGP ERFORMED BY: [employer] Mpitfv8185 Kam SolaveiDublin [place] [id number] Folate [Mass/Vol] 19.7 ng/mL Normal Compreh ensive Internal Medicine; [facility] Work Phone: Comment on above: A serum folate maría ntration of less than 3.1 ng/mL isconsidered to represent clinical deficiency. PATIENT WAS FASTINGP ERFORMED BY: [employer] Mbqzxa6211 [address] starsin [place] [id number] XR Knee - right AP and Later jose angel 10-25-2020 IMPRESSION: Osteoarthritis as described. Right suprapatellar joint effusion. Section Plotter Operator: KEVIN Transcribe Date/Time: Oct 25 2020 9:23A Dictated by : SUNIL BADILLO MD This examination was interpreted and the report reviewed and electronically signed by: SUNIL BADILLO MD on Oct 25 2020 9:24AM EST DIVISION OF RADIOLOGY * * *Final Report* * * DATE OF EXAM: Oct 25 2020 9:19AM WOX 5207 - XR KNEE 2V AP/LAT RT / PROCEDURE REASON: Acute pain of right knee * * * * Physician Interpretation * * * * CLINICAL INDICATION: Knee pain TECHNIQUE: AP and lateral radiographs of the right knee with inclusion of a single frontal view of the left knee for purposes of comparison/symmetry COMPARISON: None FINDINGS: Moderate right suprapatellar joint effusion. No acute fracture or dislocation. Moderate medial compartmental joint space narrowing. Mild lateral compartmental joint space narrowing. Miniscule medial and lateral compartmental osteophyte production. Small superior patellar enthesophyte. Mild atherosclerotic calcification of the vasculature. Comparison frontal view of the left knee demonstrates moderate medial and lateral compartmental joint space narrowing with associated osteophyte production. DIVISION OF RADIOLOGY Provider, Cecil Zhou [facility] - 10/25/2020 * * *Final Report* * * DATE OF EXAM: Oct 25 2020 9:19AM WOX 5207 - XR KNEE 2V AP/LAT RT / PROCEDURE REASON: Acute pain of right knee * * * * Physician Interpretation * * * * CLINICAL INDICATION: Knee pain TECHNIQUE: AP and lateral radiographs of the right knee with inclusion of a single frontal view of the left knee for purposes of comparison/symmetry COMPARISON: None FINDINGS: Moderate right suprapatellar joint effusion. No acute fracture or dislocation. Moderate medial compartmental joint space narrowing. Mild lateral compartmental joint space narrowing. Miniscule medial and lateral compartmental osteophyte production. Small superior patellar enthesophyte. Mild atherosclerotic calcification of the vasculature. Comparison frontal view of the left knee demonstrates moderate medial and lateral compartmental joint space narrowing with associated osteophyte production. IMPRESSION IMPRESSION: Osteoarthritis as described. Right suprapatellar joint effusion. Section Plotter Operator: PSCB Transcribe Date/Time: Oct 25 2020 9:23A Dictated by : SUNIL BADILLO MD This examination was interpreted and the report reviewed and electronically signed by: SUNIL BADILLO MD on Oct 25 2020 9:24AM EST [facility] Radiology Study observation (narrative) [facility] XR Knee - right AP and Later alOrdered By: C[facility] Provider on 10-25-2020 [facility] Vital Signs Date Time Vital Sign Value Performing Clinician Facility 11-11-2024 10:48-0400 Body height 162 cm Elvin Argueta MD Work Phone: [facility] 11-11-2024 10:48-0400 Body mass index (BMI) [Ratio] 29.3 kg/m2 Elvin Argueta MD Work Phone: [facility] 11-11-2024 10:48-0400 Body temperature 98.6 [degF] Elvin Argueta MD Work Phone: [facility] 11-11-2024 10:48-0400 Body weight 76.89 kg Elvin Argueta MD Work Phone: [facility] 11-11-2024 10:48-0400 Diastolic blood pressure 81 mm[Hg] Elvin Argueta MD Work Phone: [facility] 11-11-2024 10:48-0400 Heart rate 85 /min Elvin Argueta MD Work Phone: [facility] 11-11-2024 10:48-0400 Respiratory rate 17 /min Elvin Argueta MD Work Phone: [facility] 11-11-2024 10:48-0400 SaO2% (BldA) [Mass fraction] 96 % Elvin Argueta MD Work Phone: [facility] 11-11-2024 10:48-0400 Systolic blood pressure 144 mm[Hg] Elvin Argueta MD Work Phone: [facility] 12-30-2022 07:59-0400 Body height 162.56 cm Saida Brewster CMA [facility] Work Phone: 12-30-2022 07:59-0400 Body mass index (BMI) [Ratio] 29.52 kg/m2 Saida Brewster CMA [facility] Work Phone: 12-30-2022 07:59-0400 Body mass index (BMI) [Ratio] 30.04 kg/m2 Mel Hernandez DO Work Phone: [facility] Work Phone: 12-30-2022 07:59-0400 Body surface area Derived from formula 1.[address] [facility] Work Phone: 12-30-2022 07:59-0400 Body surface area Derived from formula 1.85 m2 Mel A Fast DO Work Phone: [facility] Work Phone: 12-30-2022 07:59-0400 Body temperature 97.7 [degF] Saida Brewster [facility] Work Phone: Comment on above: Method: Thermal Scan 12-30-2022 07:59-0400 Body weight 78.[address] [facility] Work Phone: 12-30-2022 07:59-0400 Body weight 79.38 kg Mel A Fast DO Work Phone: [facility] Work Phone: 12-30-2022 07:59-0400 Diastolic blood pressure 74 mm[Hg] Saida Brewster [facility] Work Phone: Comment on above: Patient Position: Sitting; Cuff Location : Left Arm; Cuff Size: Standard 12-30-2022 07:59-0400 Heart rate 69 /min Saida Brewster [facility] Work Phone: Comment on above: Pattern: Regular 12-30-2022 07:59-0400 Respiratory rate 16 /min Saida Brewster [facility] Work Phone: Comment on above: Pattern: Unlabored 12-30-2022 07:59-0400 Systolic blood pressure 128 mm[Hg] Saida Brewster [facility] Work Phone: Comment on above: Patient Position: Sitting; Cuff Location : Left Arm; Cuff Size: Standard 10-18-2022 10:49-0400 Body height 162.56 cm Emani Slarb [employer]CH[employer] [facility] Work Phone: 10-18-2022 10:49-0400 Body mass index (BMI) [Ratio] 29.87 kg/m2 Emani Slarb [employer] [facility] Work Phone: 10-18-2022 10:49-0400 Body surface area Derived from formula 1.84 m2 Emani Slarb [employer] ARCH[employer] [facility] Work Phone: 10-18-2022 10:49-0400 Body temperature 97.6 [degF] Emani Slarb [employer]CH[employer] [facility] Work Phone: Comment on above: Method: Temporal 10-18-2022 10:49-0400 Body weight 78.93 kg Emani Slarb [employer] [facility] Work Phone: 10-18-2022 10:49-0400 Diastolic blood pressure 60 mm[Hg] Emani Slarb [employer] [facility] Work Phone: Comment on above: Patient Position: Sitting; Cuff Location : Left Arm; Cuff Size: Standard 10-18-2022 10:49-0400 Heart rate 83 /min Emani Slarb [employer] [facility] Work Phone: Comment on above: Pattern: Regular 10-18-2022 10:49-0400 Respiratory rate 16 /min Emani Slarb [employer] [facility] Work Phone: Comment on above: Pattern: Unlabored 10-18-2022 10:49-0400 SaO2% (BldA) [Mass fraction] 95 % Emani Slarb [employer] [facility] Work Phone: Comment on above: Room air 10-18-2022 10:49-0400 Systolic blood pressure 112 mm[Hg] Emani Slarb [employer] [facility] Work Phone: Comment on above: Patient Position: Sitting; Cuff Location : Left Arm; Cuff Size: Standard Encounters Encounter Date Encounter Type Care Provider Facility Start: 04-12-2025 End: 04-12-2025 ambulatory Mel Fast Facility:[facility] Start: 03-22-2025 End: 03-22-2025 ambulatory MEL A FAST Facility:[facility] Start: 03-15-2025 End: 03-15-2025 ambulatory MEL A FAST Facility:[facility] Start: 01-24-2025 End: 01-24-[address] Mel Hernandez DO Work Phone: -Pulmonary Services/Neurology Start: 01-24-2025 End: 01-24-[address] Mel Hernandez DO -Pulmonary Services/Neurology Work Phone: Start: 01-24-2025 End: 01-24-2025 ambulatory Mel Fast Facility:[facility] Start: 11-11-2024 End: 11-11-2024 Patient encounter procedure Elvin Argueta MD Work Phone: Hematology/Oncology Start: 11-11-2024 End: 11-11-2024 ambulatory Elvin Argueta MD Work Phone: Hematology/Oncology Comment on above: Monoclonal gammopath y (Primary Dx) Start: 11-09-2024 End: 11-09-[address] Mel Hernandez DO Work Phone: [facility] Work Phone: Start: 11-09-2024 End: 11-09-[address] Mel Hernandez DO -Outpatient Bone Densitometry Work Phone: Start: 11-09-2024 End: 11-09-2024 ambulatory Mel Hernandez Facility:[facility] Start: 11-03-2024 End: 11-03-[address] Mel Hernandez DO Work Phone: [facility] Work Phone: Start: 11-03-2024 End: 11-03-[address] Mel Hernandez DO -Nuclear Medicine [facility] Work Phone: Start: 11-03-2024 End: 11-03-2024 ambulatory Mel Fast Facility:[facility] Start: 09-17-2023 End: 09-17-2023 ambulatory [facility] Work Phone: Start: 09-17-2023 End: 09-17-2023 Patient encounter procedure [facility]-Nuclear Medicine, [facility] Work Phone: Start: 09-16-2023 End: 09-17-2023 ambulatory MEL A FAST [facility] Start: 09-16-2023 End: 09-16-2023 Subsequent hospital visit by physician [address] Comment on above: Hyperlipidemia, unsp ecified Start: 01-01-2023 End: 01-01-2023 Phone Encounter Mel Fast DO Work Phone: [facility] Start: 12-31-2022 End: 12-31-2022 Annotation/Addendum Mel Fast DO Work Phone: [facility] Start: 12-30-2022 End: 12-30-2022 Patient encounter procedure Mel Fast DO Work Phone: [facility] Start: 12-30-2022 Review Mel Fast DO Work Phone: [facility] Start: 12-16-2022 End: 12-16-2022 Phone Encounter Mel Fast DO Work Phone: [facility] Start: 11-08-2022 Non-patient / Non-visit Dr. Mel Hernandez Work Phone: [facility] Start: 11-08-2022 End: 11-08-[address] Mel Hernandez Work Phone: [facility] Work Phone: Start: 11-08-2022 End: 11-08-[address] Mel Hernandez Work Phone: [facility]-Cardiovascular Services Start: 11-05-2022 End: 11-05-[address] Mel Hernandez Work Phone: [facility]-Radiology, [facility] Start: 2022 End: [address] Mel Hernandez Work Phone: [facility] Work Phone: Start: 2022 End: [address] Mel Hernandez Work Phone: [facility]-Outpatient Bone Densitometry Start: 10-18-2022 End: 10-21-2022 Office outpatient new 45 minutes Mel Hernandez DO Work Phone: [facility] Start: 09-17-2022 ambulatory Mel Hernandez DO Compreh ensive Internal Med Start: 10-25-2020 End: 10-25-2020 Subsequent hospital visit by physician [facility] Work Phone: Radiology Comment on above: Acute pain of right knee [M25.561] Procedures Date Procedure Procedure Detail Performing Clinician Start: 11-09-2024 Dual energy X-ray absorptiometry Dr. Mel Hernandez DO Work Phone: Start: 11-09-2024 Screening mammography Sherrie Hernandez DO Work Phone: Start: 11-03-2024 Radioisotope scan of parathyroid Dr. Mel Hernandez DO Work Phone: Start: 09-17-2023 Radionuclide whole b paula bone study Start: 09-16-2023 CT CARDIAC SCORING W O IV CONTRAST MEL HERNANDEZ Start: 11-08-2022 End: 11-08-2022 Echo Complete Procedure Note: See Note; NOTES: [facility] Cardiovascular Services [address] [place] [address] Echo Complete 11/08/22 0855 MR#: [id number] Acct: [id number] Name: NIGHAT BUCIO Rep #: [id number] : 1940 82 From: León Saunders MD Attending Dr: Dr. Mel Hernandez DO Status: REG CL I Ordering Dr: Mel Hernandez DO Date: 11/08/22 Location: [facility] Sex: F C Admitted: Reason For Study: SYSTOLIC MURMUR Procedure This was a 2D Doppler, Color Flow transthoracic echocardiogram. Technically difficult study due to pectus excavatum. Patient scanned laterally in supine position. Exam performed in department. Left Ventricle Normal LV size. Left ventricular systolic function is normal. The estimated ejection fraction is 65 %. No regional wall motion abnormalities noted. Right Ventricle Normal RV size. Normal systolic function. Atria Normal left atrium. Normal right atrium. Mitral Valve Bileaflet diffuse mitral valve thickening. Tricuspid Valve Normal tricuspid valve. Mild tricuspid valve insufficiency. Aortic Valve Trisinus/trileaflet aortic valve. Mild focal aortic valve calcification. Pulmonic Valve Normal pulmonic valve. Great Vessels Normal aortic root. The pulmonary artery is normal size. Normal inferior vena cava. Pericardium/Pleural No pericardial effusion. MMode/2D Measurements Calculations LAV(MOD-bp): 74.1 ml LVAd ap4: 22.0 cm2 SV(MOD-sp4): 41.3 ml LAV(MOD-bp) Indexed: 40.4 ml/m2 LVLd ap4: 7.1 cm LAV(MOD-sp2): 98.8 ml EDV(MOD-sp4): 56.4 ml LAV(MOD-sp4): 52.9 ml EDV(sp4-el): 57.6 ml LVAs ap4: 10.1 cm2 LVLs ap4: 5.7 cm ESV(MOD-sp4): 15.0 ml ESV(sp4-el): 15.2 ml EF(MOD-sp4): 73.3 % EF(sp4-el): 73.6 % SV(sp4-el): 42.4 ml LA A4 area: 21.1 cm2 LA dimension(2D): 4.3 cm RA A4 area: 13.7 cm2 Time Measurements MV dec time: 0.38 sec Doppler Measurements Calculations MV E max jillian: 127.8 cm/sec Lat Peak E' Jillian: 7.0 cm/sec Med Peak E' Jillian: 5.8 cm/sec MV A max jillian: 139.7 cm/sec E/E' lat: 18.2 E/E' med: 22.0 MV E/A: 0.92 MV V2 max: 148.5 cm/sec MV dec slope: 343.1 cm/sec2 Ao V2 max: 188.3 cm/sec MV max P.8 mmHg Ao max P.2 mmHg MV V2 mean: 79.0 cm/sec Ao V2 mean: 133.6 cm/sec MV mean P.1 mmHg Ao mean P.1 mmHg MV V2 VTI: 53.6 cm Ao V2 VTI: 51.4 cm AV (velocity ratio): 0.72 LV V1 max: 127.0 cm/sec TR max jillian: 222.4 cm/sec LV V1 max P.4 mmHg TR max P.8 mmHg LV V1 mean P.1 mmHg LV V1 mean: 95.7 cm/sec LV V1 VTI: 36.9 cm ECHO/Echo Complete Interpretation Summary Normal LV size. Left ventricular systolic function is normal. The estimated ejection fraction is 65 %. Mild tricuspid valve insufficiency. Bileaflet diffuse mitral valve thickening. ___ Ordering Physician: Mel Hernandez Referring Physician: Mel Hernandez Performed By: Jodee Freedman RCS 11/08/221820 Date León Saunders MD CC: Dr. Mel Hernandez DO Date Dictated: 11/08/22854 Date Transcribed: 11/08/221820 Section Plotter Operator: Signed Mel Hernandez DO Work Phone: Start: 11-05-2022 End: 11-05-2022 Esophagus Dual Contrast Procedure Note: See Note; NOTES: [facility] Imaging Services [address] [place] [id number] Esophagus Dual Contrast MR#: [id number] Acct: [id number] Name: NIGHAT BUCIO Rep #: [id number] : 1940 F 82 From: Trevor worley MD PCP: Dr. Mel Hernandez DO Status: REG CLI Study: Esophagus Dual Contrast Date of Exam: 11/05/22 Exam# [id number] Ordering Dr: Mel Hernandez DO STUDY: X-RAY - ESOPHAGUS (BARIUM SWALLOW) WITH FLUOROSCOPY REASON FOR EXAM: Female, 82 years old. DIFFICULT SWALLOWING TECHNIQUE: 18 view(s) of the esophagus were obtained following swallowing of barium. FLUOROSCOPY TIME (if supplied): (35 seconds) minutes/seconds. 5.6 mGy COMPARISON: None. FINDINGS: There is no demonstrated esophageal foreign body. There is no demonstrated stricture or mucosal abnormality. Normal gastroesophageal junction, without a demonstrated hiatal hernia. The patient ingested a 12 mm tablet of barium without any difficulty. There is atherosclerotic calcification of the aortic arch with tortuosity of the descending aorta. Normal visualized pulmonary parenchyma. There are diffuse degenerative changes of the visualized thoracic spine. RAD/Esophagus Dual Contrast IMPRESSION: Normal plain film x-ray examination (barium swallow) of the esophagus. Electronically Signed: Trevor Adkins MD at 14:28 EDT , CC: Dr. Mel Hernandez DO Section Plotter Operator: Signed Mel Hernandez DO Work Phone: Start: 11-05-[address] Mel Hernandez Work Phone: Start: 2022 End: 11-01-2022 Dexa Bone Density Study Procedure Note: See Note; NOTES: [facility] Imaging Services [address] [place] [address] Dexa Bone Density Study MR#: [id number] Acct: [id number] Name: NIGHAT BUICO Rep #: [id number] : 1940 F 82 From: Trevor worley MD PCP: Dr. Mel Hernandez DO Status: [facility] Study: Dexa Bone Density Study Date of Exam: 10/30/22 Exam# [id number] Ordering Dr: Mel Hernandez DO STUDY: DUAL ENERGY X-RAY ABSORPTIOMETRY / DXA REASON FOR EXAM: Female, 82 years old. [id number] TECHNIQUE: Bone Mineral Density (BMD) measurements of lumbar spine and bilateral hips were obtained. COMPARISON: None. FINDINGS: Lumbar Spine (L1-L4): g/cm2 (1.128) / T-score (0.7) / Z-score (3.5) Findings are suggestive of normal bone density with a low fracture risk. Left Femur Total: g/cm2 (0.761) / T-score (-1.5) / Z-score (0.6) Left Femoral Neck: g/cm2 (0.6-0) / T-score (-2.1) / Z-score (0.3) Right Femur Total: g/cm2 (0.750) / T-score (-1.6) / Z-score (0.5) Right Femoral Neck: g/cm2 (0.633) / T-score (-1.9) / Z-score (0.4) BD/Dexa Bone Density Study IMPRESSION: The patient is considered osteopenic as outlined below according to World Ma[employer] Organization (WHO) criteria with a moderate fracture risk. Reference Information: The T-score is the number of standard deviations above or below the standard which is normal for young adults at their peak bone mineral density. The World Health Organization (WHO) interprets the T-scores as follows: Above -1 Normal bone density Between -1 and -2.5 Osteopenia Equal to / or below -2.5 Osteoporosis As a practical clinical guideline, osteopenia may be graded as follows: Mild -1 through -1.5 Moderate -1.6 through -2.0 Severe -2.1 through -2.4 The Z-score is the number of standard deviations above or below age-matched controls. A Z-score of less than -1.5 would be considered abnormal. References: 1. NIH Osteoporosis and Related Bone Diseases www osteo.org 2. International Society for Clinical Densitometry www iscd.org 3. National Osteoporosis Foundation www nof.org Electronically Signed: Trevor Adkins MD at 9:44 EDT , CC: Dr. Mel Hernandez DO Section Plotter Operator: Elizabeth Hernandez DO Work Phone: Start: 2022 Dual energy X-ray absorptiometry Dr. Mel Hernandez Work Phone: Start: 2022 Screening mammography Sherrie Hernandez Work Phone: Start: 2022 End: 2022 SCRN MAMM (CAD)W/TODD BILAT Procedure Note: See Note; NOTES: [facility] Imaging Services [address] [place] [address] SCRN MAMM (CAD)W/TODD BILAT MR#: [id number] Acct: [id number] Name: NIGHAT BUCIO Rep #: [id number] : 1940 F 82 From: Trevor worley MD PCP: Dr. Mel Hernandez DO Status: REG CLI Study: SCRN MAMM (CAD)W/TODD BILAT Date of Exam: 10/02 06/24 Exam# [id number] Ordering Dr: Mel Hernandez DO MAMMOGRAPHY - BILATERAL SCREENING REASON FOR EXAM: Female, 82 years old. Routine annual screening examination. PERTINENT HISTORY: Non-contributory. TECHNIQUE: Digital bilateral breast todd (3D mammographic acquisition) in the CC and MLO projections. 2-D mediolateral oblique (MLO) and craniocaudad (CC) views of both breasts were obtained. CAD: Full Field Digital Mammography with Computer Added Detection was performed. COMPARISON: Comparison is made with prior study dated February 11, 2019. FINDINGS: Breast Composition: The breasts are heterogeneously dense, which may obscure small masses. There are no dominant masses or suspicious calcifications. Stable benign-appearing bilateral axillary lymph nodes. No other significant abnormalities are identified. There has been no significant change since the prior study. BI/SCRN MAMM (CAD)W/TODD BILAT IMPRESSION: Stable bilateral screening mammogram. Yearly follow-up mammogram recommended. (A) ASSESSMENT CATEGORY: BIRADS Category 2: Benign. A letter regarding these results will be sent to the patient by the facility within 30 days. Approximately 10% of breast cancers are not detected by mammography. A normal mammogram should not delay biopsy of a clinically suspicious abnormality. [id number] Electronically Signed: Trevor Adkins MD at 11:08 EDT Reading Location ID and State: [facility] / [place] , Service support , CC: Dr. Mel Hernandez, Section Plotter Operator: Signed Mel Hernandez DO Work Phone: Start: 10-25-2020 Radiologic examinati on knee 1/2 views Mart Campo APRN.COOPERATIVE EXTENSION AGENT Work Phone: Cataract surgery Mel pollock DO Work Phone: Comment on above: both eyes Cataract surgery [facility] Comment on above: both eyes Plan of Treatment Date Care Activity Detail Author Start: 03-22-2025 End: 03-22-2025 ambulatory 03/22/2025 8:40 AM EDT Visit (SP) Office Hematology/Oncology [address] [place] [address] Elvin Argueta MD [address], [place] [id number] [phone] OV/LABS 03/15* Hematology/Oncology Comment on above: 4MO OV/LABS 03/15* Start: 03-15-2025 End: 03-15-2025 ambulatory 03/15/2025 7:30 AM EDT Results Only Becka Johnson [facility] Laboratory [address] [place] [address] [facility] Comment on above: [facility] Start: 01-31-2025 Influenza vaccination Influenza Vaccine (Season Ended) [facility] Start: 11-11-2024 End: 02-10-2025 Basic metabolic 2000 panel - Serum or Plasma BASIC METABOLIC PANEL Lab Routine Monoclonal gammopathy Expected: 11/11/2024, Expires: 02/10/2025 [facility] Comment on above: Expected: 11/11/2024, Expires: Start: 11-11-2024 End: 02-10-2025 CBC W Auto Differential panel - Blood COMPLETE BLOOD COUNT AND DIFFERENTIAL Lab Routine Monoclonal gammopathy Expected: 11/11/2024, Expires: 02/10/2025 [facility] Work Phone: Comment on above: Expected: 11/11/2024, Expires: Start: 11-11-2024 End: 02-10-2025 KAPPA/OATES,FREE,SER KAPPA/OATES,FREE,SER Lab Routine Monoclonal gammopathy Expected: 11/11/2024, Expires: 02/10/2025 [facility] Comment on above: Expected: 11/11/2024, Expires: Start: 11-11-2024 End: 02-10-2025 MONOCLONAL PROTEIN, SERUM (BLOOD) MONOCLONAL PROTEIN, SERUM (BLOOD) Lab Routine Monoclonal gammopathy Expected: 11/11/2024, Expires: 02/10/2025 [facility] Comment on above: Expected: 11/11/2024, Expires: Start: 11-11-2024 End: 02-10-2025 PROTEIN ELECTROPHORESIS SERUM W/INTERP PROTEIN ELECTROPHORESIS SERUM W/INTERP Lab Routine Monoclonal gammopathy Expected: 11/11/2024, Expires: 02/10/2025 [facility] Comment on above: Expected: 11/11/2024, Expires: Start: 06-02-2024 Advance Directive Discussion Advance Directive Discussion [facility] Start: 02-01-2024 Covid-19 Vaccine () Covid-19 Vaccine () [facility] Start: 02-01-2024 Covid-19 Vaccine ( season) Covid-19 Vaccine () [facility] Start: 02-01-2024 Influenza vaccination [facility] Start: 06-02-2023 Advance Directive Discussion Advance Directive Discussion [facility] Start: 01-31-2023 COVID-19 Vaccine ( season) COVID-19 Vaccine () [facility] Start: 01-01-2023 Potassium serum plasma/whole blood POTASSIUM SERUM (14750) [facility] Work Phone: Comment on above: recheck in 1 month Start: 12-31-2022 Potassium serum plasma/whole blood POTASSIUM SERUM (15629) [facility]; [facility] Work Phone: Start: 12-30-2022 Procedure Education Eprescribed prescriptions (G8553) [facility]; [facility] Work Phone: Start: 12-30-2022 Urnls dip stick/tablet reagent auto microscopy URINALYSIS, W/ MICRO (59267) [facility] Work Phone: Start: 12-30-2022 Assay of glutamyltrase gamma GGT (GAMMA GLUTAMYLTRANSFERASE) (27312) [facility]; [facility] Work Phone: Start: 12-30-2022 Comprehensive metabolic panel METABOLIC PANEL, COMPREHENSIVE (27260) [facility]; [facility] Work Phone: Start: 12-30-2022 Hemoglobin glycosylated a1c HGB A1C (67412) [facility]; [facility] Work Phone: Start: 12-30-2022 Lipid panel LIPID PANEL (41000) [facility]; [facility] Work Phone: Start: 12-30-2022 Urnls dip stick/tablet rgnt non-auto w/o micrscp Urinalysis, Office (89591) [facility]; [facility] Work Phone: Start: 12-30-2022 Culture bacterial quanttative colony count urine URINE ATIYA CULTURE (BRAYAN COL COUNT) (72126) [facility]; [facility] Work Phone: Start: 10-18-2022 Procedure Education Eprescribed prescriptions (G8553) [facility]; [facility] Work Phone: Start: 03-15-2017 Diabetes Screening Diabetes Screening [facility] Start: 2016 RSV Vaccine (1 - 1-dose 75+ series) RSV Vaccine (1 - 1-dose 75+ series) [facility] Start: 03-15-2015 Pneumococcal Vaccine: 50+ (2 of 2 - PCV) Pneumococcal Vaccine: 50+ (2 of 2 - PCV) [facility] Start: 03-15-2015 Pneumococcal Vaccine: 65+ (2 of 2 - PCV) Pneumococcal Vaccine: 65+ (2 of 2 - PCV) [facility] Start: 03-15-2015 Pneumococcal Vaccine: 65+ Years (2 of 2 - PCV) Pneumococcal Vaccine: 65+ Years (2 of 2 - PCV) [facility] Start: 08-10-2014 Zoster Vaccines (2 of 3) Zoster Vaccines (2 of 3) [facility] Start: 06-15-2014 Shingrix Vaccine (2 of 3) Shingrix Vaccine (2 of 3) [facility] Start: 03-16-2014 DTaP/Tdap/Td Vaccines (1 - Tdap) DTaP/Tdap/Td Vaccines (1 - Tdap) [facility] Start: 03-16-2014 Urine microalbumin profile DTaP,Tdap,Td Vaccine (1 - Tdap) [facility] Start: 09-30-2006 Medicare Annual Wellness Visit Medicare Annual Wellness Visit [facility] Start: 2001 RSV Vaccine (1 - 1-dose 60+ series) RSV Vaccine (1 - 1-dose 60+ series) [facility] Start: 10-31-1959 Anxiety Screening Anxiety Screening [facility] Start: 10-31-1959 Depression Screening Depression Screening [facility] Start: 1940 Lipid panel Lipid Panel [facility] Start: 1940 Medicare Annual Wellness Visit Medicare Annual Wellness Visit (AWV) [facility] Start: 1940 Screening for osteoporosis Bone Density Scan [facility] End: 09-16-2023 CT for calcium scoring WO contrast and CTA W contrast IV Heart and coronary arteries [facility] Service Area Work Phone: Comment on above: Once for 1 Occurrences starting 09/16/19 until 09/16/2023 [facility] Work Phone: [facility] Work Phone: [facility] Work Phone: Immunizations Immunization Date Immunization Notes Care Provider Franco vuong 06-15-2014 zoster vaccine, live Mel F ast DO Work Phone: [facility] Work Phone: 04-20-2014 zoster vaccine, live Mel F ast DO Work Phone: [facility] Work Phone: 03-15-2014 pneumococcal polysaccharide vaccine, 23 valent Mel Fast DO Work Phone: [facility] Work Phone: Comment on above: pneumovax 03-15-2014 tetanus and diphther ia toxoids, adsorbed, preservative free, for adult use (5 Lf of tetanus toxoid and 2 Lf of diphtheria toxoid) Xr [place] Work Phone: [facility] 03-15-2014 tetanus toxoid, adsorbed Mel Fast DO Work Phone: [facility] Work Phone: Payers Date Payer Category Payer Self-pay [id number] 2023 Unknown 2022 Private Health Insurance [id number] 2020 Private Health Insurance [id number] 2020 Unknown [id number] 2006 Medicare [id number] 2006 Medicare [id number] 1940 Unknown [id number] 1940 Unknown [id number] Unknown [id number] Unknown [id number] [id number] [id number] Unknown [id number] 2.16.8 [id number] Unknown [id number] 2.16.8 [id number] Unknown [id number] 2.16.8 [id number] Unknown [id number] [id number] [id number] Social History Date Type Detail Facility [facility] Work Phone: Start: 1940 Sex Assigned At Female [facility] Start: 08-26-2014 Tobacco smoking stat [facility] Unknown if ever smoked [facility] Start: 10-25-2020 End: 11-11-2024 Current Household Members Current Household Members [facility] Work Phone: Comment on above: lives with eduardo rousseau has inclusion body myositis and is his caregiver 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 [employer] Tobacco use: Tobacco use: [facility] Work Phone: Start: 1940 Sex assigned at Not on file [facility] Work Phone: Start: 10-25-2020 End: 11-11-2024 Gender identity Not on file [facility] Work Phone: Start: 09-25-2020 End: 09-16-2023 Exposure to SARS-CoV-2 (event) Not sure [facility] Start: 03-08-2013 End: 08-26-2014 Tobacco smoking status NHIS Never smoked tobacco [facility] Start: 03-08-2013 Tobacco use and exposure Smokeless tobacco non-user [facility] Start: 10-25-2020 End: 01-16-2022 Alcoholic beverage intake Current non-drinker of alcohol (finding) [facility] National Score (1-10 0), lower number is lower risk Not on file [facility] Functional Status Date Assessment Result Facility 04-20-2014 Are you deaf, or do you have serious difficulty hearing No 04/20/2014 10:39 AM Lindsay Townsend LPN [facility] 04-20-2014 Are you blind, or do you have serious difficulty seeing, even when wearing glasses No 04/20/2014 10:39 AM Lindsay Townsend LPN [facility] 04-20-2014 Do you have serious difficulty walking or climbing stairs No 04/20/2014 10:39 AM Lindsay Townsend LPN No [facility] 04-20-2014 Do you have difficul ty dressing or bathing No 04/20/2014 10:39 AM Lindsay Townsend LPN No [facility] 04-20-2014 Because of a physica l, mental, or emotional condition, do you have difficulty doing errands alone such as visiting a physician's office or shopping No 04/20/2014 10:39 AM Lindsay Townsend LPN [facility] Mental Status Date Assessment Result Facility 04-20-2014 Because of a physica l, mental, or emotional condition, do you have serious difficulty concentrating, remembering, or making decisions No 04/20/2014 10:39 AM Lindsay Townsend LPN No [facility] Clinical Notes 10-25-2020 to 03-22-2025 Elvin Argueta MD - 11/11/2024 10:53 AM Sandrine Cha RT(R) - 10/25/2020 9:10 AM EDT Note Date & Type Note Facility 03-22-2025 Note HNO ID: [id number] Author: ELVIN ARGUETA MD Service: ? Author Type: Physician Type: Progress Notes Filed: 03/22/2025 09:33 Note Text: (Elements copied from my note dated November 11, 2024, have been reviewed and updated where appropriate, and all reflect current assessment and medical decision making from today's encounter, March 22, 2025) HISTORY OF PRESENT ILLNESS: Nighat Bucio is a 84 year old female referred for evaluation of monoclonal protein on serum SPEP. Discovered as part of work up for hypercalcemia. CARLOS shows monoclonal IgG and IgM. Low level. Labs otherwise normal. Calcium scoring CT scan last year, no adenopathy seen per report. 03-22-25 follow up, labs reviewed. ?monoclonal IgM versus polyclonal IgM, very low level. CLINICAL IMPRESSION: ? Monoclonal protein, of very doubtful clinical significance. RECOMMENDATION/PLAN: 1. Would not work this up further. Written and verbal health teaching given to patient, patient verbalizes understanding and agrees with treatment plan. PAST MEDICAL HISTORY Diagnosis Date Diverticulosis of colon (without mention of hemorrhage) Internal hemorrhoids without mention of complication Thyroiditis, unspecified treated with radioactive iodine PAST SURGICAL HISTORY Procedure Laterality Date COLONOSCOPY 2003 DILATION AND CURETTAGE DXAND/THER NONOBSTETRIC FAMILY HISTORY Problem Relation Age of Onset Cancer Mother uterine/lung other (prostate surgery [Other]) Father unsure if cancerous Heart Father open heart surgery Arthritis Mother osteoarthristis, allergy to sulf and environmental allergies Allergies Sister Thyroid Sister Thyroid Sister half sis Social History Tobacco Use Smoking status: Never Smokeless tobacco: Never Vaping Use Vaping status: Never Used Substance Use Topics Alcohol use: No Drug use: No ALLERGIES: ALLERGIES No Known Allergies CURRENT OUTPATIENT MEDICATIONS: OTC NUTRITIONAL SUPPLEMENT Take 2 capsules by mouth once daily. Tumeric vitamin b complex capsule Take 1 capsule by mouth once daily. cyanocobalamin, vitamin B-12, (VITAMIN B-12 PO) Take 1 tablet by mouth once daily. cholecalciferol, vitD3,/vit K2 (VITAMIN D3-VITAMIN K2 PO) Take 1 tablet by mouth once daily. OTC NUTRITIONAL SUPPLEMENT Take 2 tablets by mouth once daily. Magnesium Breakthrough REVIEW OF SYSTEMS: GENERAL: No fever, night sweats, weight loss or malaise. No palpable adenopathy. I spent a total of 30 minutes on the date of the service which included preparing to see the patient, [id number] patient care, completing clinical documentation, obtaining and/or reviewing separately obtained history, performing a medically appropriate examination, counseling and educating the patient/family/caregiver, ordering medications, tests, or procedures, independently interpreting results (not separately reported), and communicating results to the patient/family/caregiver. Electronically Signed: Elvin Argueta MD March 22, 2025 [facility] 11-11-2024 Note HNO ID: [id number] Author: ELVIN ARGUETA MD Service: ? Author Type: Physician Type: Progress Notes Filed: 11/11/2024 12:40 Note Text: HISTORY OF PRESENT ILLNESS: Nighat Bucio is a 84 year old female referred for evaluation of monoclonal protein on serum SPEP. Discovered as part of work up for hypercalcemia. CARLOS shows monoclonal IgG and IgM. Low level. Labs otherwise normal. Calcium scoring CT scan last year, no adenopathy seen per report. CLINICAL IMPRESSION: Bi clonal monoclonal gammopathy. Low level, other labs ok (hgb, creat) RECOMMENDATION/PLAN: 1. Observe labs for now, recheck MGUS labs 4 months, holing off on further tests for now. Written and verbal health teaching given to patient, patient verbalizes understanding and agrees with treatment plan. PAST MEDICAL HISTORY Diagnosis Date Diverticulosis of colon (without mention of hemorrhage) Internal hemorrhoids without mention of complication Thyroiditis, unspecified treated with radioactive iodine PAST SURGICAL HISTORY Procedure Laterality Date COLONOSCOPY 2003 DILATION AND CURETTAGE DXAND/THER NONOBSTETRIC FAMILY HISTORY Problem Relation Age of Onset Cancer Mother uterine/lung other (prostate surgery [Other]) Father unsure if cancerous Heart Father open heart surgery Arthritis Mother osteoarthristis, allergy to sulf and environmental allergies Allergies Sister Thyroid Sister Thyroid Sister half sis Social History Tobacco Use Smoking status: Never Smokeless tobacco: Never Substance Use Topics Alcohol use: No Drug use: No ALLERGIES: ALLERGIES No Known Allergies CURRENT OUTPATIENT MEDICATIONS: No prescriptions on file. REVIEW OF SYSTEMS: GENERAL: No fever, night sweats, weight loss or malaise. No palpable adenopathy. I spent a total of 45 minutes on the date of the service which included preparing to see the patient, [id number] patient care, completing clinical documentation, obtaining and/or reviewing separately obtained history, performing a medically appropriate examination, counseling and educating the patient/family/caregiver, ordering medications, tests, or procedures, independently interpreting results (not separately reported), and communicating results to the patient/family/caregiver. Electronically Signed: Elvin Argueta MD November 11, 2024 10:54 AM [facility] 11-11-2024 History of Present illness Narrative HISTORY OF PRESENT ILLNESS: Nighat Bucio is a 84 year old female referred for evaluation of monoclonal protein on serum SPEP. Discovered as part of work up for hypercalcemia. CARLOS shows monoclonal IgG and IgM. Low level. Labs otherwise normal. Calcium scoring CT scan last year, no adenopathy seen per report. CLINICAL IMPRESSION: Bi clonal monoclonal gammopathy. Low level, other labs ok (hgb, creat) RECOMMENDATION/PLAN: 1. Observe labs for now, recheck MGUS labs 4 months, holing off on further tests for now. Written and verbal health teaching given to patient, patient verbalizes understanding and agrees with treatment plan. PAST MEDICAL HISTORY Diagnosis Date Diverticulosis of colon (without mention of hemorrhage) Internal hemorrhoids without mention of complication Thyroiditis, unspecified treated with radioactive iodine PAST SURGICAL HISTORY Procedure Laterality Date COLONOSCOPY 2003 DILATION & CURETTAGE DX&/THER NONOBSTETRIC FAMILY HISTORY Problem Relation Age of Onset Cancer Mother uterine/lung other (prostate surgery [Other]) Father unsure if cancerous Heart Father open heart surgery Arthritis Mother osteoarthristis, allergy to sulf and environmental allergies Allergies Sister Thyroid Sister Thyroid Sister half sis Social History Tobacco Use Smoking status: Never Smokeless tobacco: Never Substance Use Topics Alcohol use: No Drug use: No ALLERGIES: ALLERGIES No Known Allergies CURRENT OUTPATIENT MEDICATIONS: No prescriptions on file. REVIEW OF SYSTEMS: GENERAL: No fever, night sweats, weight loss or malaise. No palpable adenopathy. I spent a total of 45 minutes on the date of the service which included preparing to see the patient, [id number] patient care, completing clinical documentation, obtaining and/or reviewing separately obtained history, performing a medically appropriate examination, counseling and educating the patient/family/caregiver, ordering medications, tests, or procedures, independently interpreting results (not separately reported), and communicating results to the patient/family/caregiver. Electronically Signed: Elvin Argueta MD November 11, 2024 10:54 AM documented in this encounter [facility] 11-04-2024 Nuclear medicine Diagnostic study note [facility] Imaging Services [address] [place], [place] [address] Parathyroid Scan MR#: [id number] Acct: [id number] Name: NIGHAT BUCIO Rep #: [id number] : 1940 F 84 From: Eric Anne MD PCP: Dr. Mel Hernandez DO Status: REG CLI Study:Parathyroid Scan Date of Exam: 09/24 Exam# [id number] Ordering Dr: Sabina Hernandez ra, DO PROCEDURE: PARATHYROID SCAN REASON FOR EXAM: HYPERPARATHYROIDISM. Elevated calcium level. TECHNIQUE: Nuclear medicine parathyroid imaging performed following intravenous technetium-99m sestamibi administration. Immediate and delayed anterior imaging of the neck were obtained. RADIOPHARMACEUTICAL: Technetium 99 M sestamibi DOSE 28mCi intravenous. COMPARISON: None. FINDINGS: On immediate images, normal and symmetric appearance of both thyroid lobes is seen, without focus of abnormal uptake. Delayed images show normal decrease over time, without residual focus to suggesthyperactive parathyroid tissue. NM/Parathyroid Scan IMPRESSION: Negative examination, without evidence of hyperactive parathyroid tissue. Reading Location: [address] CC: Dr. Mel Hernandez DO ~ Section Plotter Operator: Signed [facility] 10-25-2020 History of Present illness Narrative Radiology Service Progress Note PATIENT NAME: Nighat Bucio DATE OF SERVICE: October 25, 2020 TIME: 9:18 AM PATIENT IDENTITY VERIFICATION COMPLETED USING TWO (2) IDENTIFIERS: Name and Date of confirmed by patient verbally. FALL SCREENING: Has the patient had 2 falls in the last year or 1 fall with injury or currently using an Ambulatory Assistive Device (Walker, Cane, Wheelchair, Crutches, etc.)? No PATIENT GENDER DATA: Female. status: : No status: NO. PATIENT RELEVANT IMPLANT DATA REVIEWED: Not Applicable RADIOLOGY DEPARTMENT: General X-ray: Exam(s) Completed: Lower Extremity X-Ray(s): Knee, AP / LAT Right and Wt. Bearing PERIPHERAL IV DATA: Not applicable SIGNED BY: RT Hiro(R) October 25, 2020 9:18 AM documented in this encounter [facility] Evaluation note No assessment inform ation available [facility] Work Phone: Evaluation note Diagnosis Hyperlipidemia, unspecified documented in this encounter [facility] Work Phone: Evaluation note* Diagnosis Acute pain of right knee [facility] Monoclonal gammopathy- Primary Monoclonal paraproteinemia [facility] Name Dates Details Patient Instructions Indication:Arthritis of knee, right Start:18-Oct-2022 Instruction Type:Provider Instructions for Treatment How to Access Health Informa tion Online using Patient Portal and [employer] Apps Indication:Arthritis of knee, right Start:18-Oct-2022 Instruction Type:Patient Education [facility] Work Phone: [employer]* Name Dates Details Patient Instructions Indication:UTI (urinary tract infection) Start:30-Dec-2022 Instruction Type:Provider Instructions for Treatment How to Access Health Informa tion Online using Patient Portal and [employer] Apps Indication:UTI (urinary tract infection) Start:30-Dec-2022 Instruction Type:Patient Education Patient Instructions Indication:Arthritis of knee, right Start:18-Oct-2022 Instruction Type:Provider Instructions for Treatment How to Access Health Informa tion Online using Patient Portal and [employer] Apps Indication:Arthritis of knee, right Start:18-Oct-2022 Instruction Type:Patient Education [facility]; [facility] Work Phone: instructions* Name Dates Details Patient Instructions Indication:UTI (urinary tract infection) Start:30-Dec-2022 Instruction Type:Provider Instructions for Treatment How to Access Health Informa tion Online using Patient Portal and [employer] Indication:UTI (urinary tract infection) Start:30-Dec-2022 Instruction Type:Patient Education Patient Instructions Indication:Arthritis of knee, right Start:18-Oct-2022 Instruction Type:Provider Instructions for Treatment How to Access Health Informa tion Online using Patient Portal and [employer] Indication:Arthritis of knee, right Start:18-Oct-2022 Instruction Type:Patient Education [facility] Work Phone: [employer]* Name Dates Details Patient Instructions Indication:UTI (urinary tract infection) Start:30-Dec-2022 Instruction Type:Provider Instructions for Treatment How to Access Health Informa tion Online using Patient Portal and [employer] Apps Indication:UTI (urinary tract infection) Start:30-Dec-2022 Instruction Type:Patient Education Patient Instructions Indication:Arthritis of knee, right Start:18-Oct-2022 Instruction Type:Provider Instructions for Treatment How to Access Health Informa tion Online using Patient Portal and [employer] Indication:Arthritis of knee, right Start:18-Oct-2022 Instruction Type:Patient Education [facility] Work Phone: [employer]* Name Dates Details Patient Instructions Indication:UTI (urinary tract infection) Start:30-Dec-2022 Instruction Type:Provider Instructions for Treatment How to Access Health Informa tion Online using Patient Portal and [employer] Indication:UTI (urinary tract infection) Start:30-Dec-2022 Instruction Type:Patient Education Patient Instructions Indication:Arthritis of knee, right Start:18-Oct-2022 Instruction Type:Provider Instructions for Treatment How to Access Health Informa tion Online using Patient Portal and [employer] Indication:Arthritis of knee, right Start:18-Oct-2022 Instruction Type:Patient Education [facility]; [facility] Work Phone: [employer]* Name Dates Details Patient Instructions Indication:UTI (urinary tract infection) Start:30-Dec-2022 Instruction Type:Provider Instructions for Treatment How to Access Health Informa tion Online using Patient Portal and [employer] Indication:UTI (urinary tract infection) Start:30-Dec-2022 Instruction Type:Patient Education Patient Instructions Indication:Arthritis of knee, right Start:18-Oct-2022 Instruction Type:Provider Instructions for Treatment How to Access Health Informa tion Online using Patient Portal and [employer] Indication:Arthritis of knee, right Start:18-Oct-2022 Instruction Type:Patient Education [facility] Work Phone: reason for referral (narrative)[facility] for [facility] Work [facility]: Summary Purpose Family History No Family History Records FoundUnknown Family Member Name Dates Details Brother 1 Comments:living dm Status:Active Father Comments: at 99 years of age, skin cancer Status:Active Sister 1 Comments:Asthma/allergies Status:Active Mother Comments:Asthma, Lung cancer , uterine cancer Status:Inactiveas [id number] Unknown Family Member Name Dates Details Brother 1 Comments:living dm Status:Active Father Comments: at 99 years of age-htn- colon obstruction- never had colonsocopy Status:Active Mother Comments:- allergies- stage 3 lung cancer heart gave out was a smoker- mid 80s Status:Active Sister 1 Comments:Asthma/allergies Status:Active Unknown Family Member Name Dates Details Brother 1 Comments:living dm Status:Active Father Comments: at 99 years of age-htn- colon obstruction- never had colonsocopy Status:Active Mother Comments:- allergies- stage 3 lung cancer heart gave out was a smoker- mid 80s Status:Active Sister 1 Comments:Asthma/allergies Status:Active Unknown Family Member Name Dates Details Brother 1 Comments:living dm Status:Active Father Comments: at 99 years of age-htn- colon obstruction- never had colonsocopy Status:Active Mother Comments:- allergies- stage 3 lung cancer heart gave out was a smoker- mid 80s Status:Active Sister 1 Comments:Asthma/allergies Status:Active Unknown Family Member Name Dates Details Brother 1 Comments:living dm Status:Active Father Comments: at 99 years of age-htn- colon obstruction- never had colonsocopy Status:Active Mother Comments:- allergies- stage 3 lung cancer heart gave out was a smoker- mid 80s Status:Active Sister 1 Comments:Asthma/allergies Status:Active Unknown Family Member Name Dates Details Brother 1 Comments:living dm Status:Active Father Comments: at 99 years of age-htn- colon obstruction- never had colonsocopy Status:Active Mother Comments:- allergies- stage 3 lung cancer heart gave out was a smoker- mid 80s Status:Active Sister 1 Comments:Asthma/allergies Status:Active Advance Directives No Advanced Directives Records FoundNo Advanced Directives Records FoundNo Advanced Directives Records FoundNo Advanced Directives Records Found Chief Complaint and Reason for Visit Chief Complaint SCREENING DIFFICULTY SWALLOWING SYSTOLIC MURMUR Chief Complaint ABNORMAL LEVELS OF S NATALYA ENZYMES Chief Complaint Admit Date HYPERPARATHYROIDISM November 03, 2024 9:27a m Chief Complaint Admit Date HYPERPARATHYROIDISM November 03, 2024 9:27a m SCREENING November 09, 2024 7:36 am Chief Complaint Admit Date HYPERPARATHYROIDISM November 03, 2024 9:27a m SCREENING November 09, 2024 7:36 am Ventricular premature depolarization Dec 7:54am Reason for Referral Specialty Diagnoses / Procedures Referred By Contac t Referred To Contact Radiology Diagnoses Hyperlipidemia, unspecified Procedures CT cardiac scoring wo IV contrast Mel Hernandez DO [address] [address] Referral ID Status Reason Start Date Expiration Date Visits Requested Visits Authorized [id number] Authorized Perform Procedure 08/25/2023 08/24/2024 1 1 Additional Source Comments Goals (unrecognized section and content) Goals may be documented in a n alternate sectionGoals may be documented in an alternate sectionGoals may be documented in an alternate sectionGoals may be documented in an alternate sectionGoals may be documented in an alternate sectionGoals may be documented in an alternate sectionGoals may be documented in an alternate section INFORMATION SOURCE (unrecogn ized section and content) DATE CREATED AUTHOR 09/17/2022 [facility] DATE CREATED AUTHOR AUTHOR'S ORGANIZ ATION 09/19/2023 [facility] DATE CREATED AUTHOR AUTHOR'S ORGANIZ ATION 03/23/2025 [facility] DATE CREATED AUTHOR AUTHOR'S ORGANIZ ATION [facility]/12/2025 [facility] Care Teams (unrecognized sec tion and content) Team Status: Active Member Role Status Dates Dr. Chandrakant Dewitt MD Family Provider Active Dr. Mel Hernandez DO Primary Care Provider Active Team Status: Active Member Role Status Dates Dr. Mel Hernandez DO Primary Care Provider Active Dr. León Saunders MD Attending Provider Active Team Status: Active Member Role Status Dates Dr. Mel Fast , DO Primary Care Provide r, Attending Provider, Referring Provider Active Team Status: Inactive Member Role Status Dates Dr. Mel Hernandez DO Primary Care Provide r, Attending Provider, Referring Provider Active Private Client Advisor Relationship Specialty Start Date End Date Mel Hernandez DO [address] [facility] [address] [place], [place] [address] PCP - General Internal Medicine 09/11/23 Private Client Advisor Relationship Specialty Start Date End Date Chandrakant Dewitt MD PCP - General Family Medicine 10/26/15 Team Status: Active Member Role Status Dates Dr. Mel Hernandez DO Primary Care Provider Active Team Status: Inactive Member Role Status Dates Dr. Mel Hernandez DO Primary Care Provider Active Start: November 03, 2024 End: November 03, 2024 Dr. Mel Hernandez DO Attending Provider Active St art: November 03, 2024 End: November 03, 2024 Dr. Mel Hernandez DO Referring Provider Active St art: November 03, 2024 End: November 03, 2024 Private Client Advisor Relationship Specialty Start Date End Date Mel Hernandez DO [address] [facility] [address] [place], [place] [address] PCP - General Internal Medicine 11/11/24 Team Status: Inactive Member Role Status Dates Dr. Mel Hernandez DO Primary Care Provider Active Start: November 09, 2024 End: November 09, 2024 Dr. Mel Hernandez DO Attending Provider Active St art: November 09, 2024 End: November 09, 2024 Dr. Mel Hernandez DO Referring Provider Active St art: November 09, 2024 End: November 09, 2024 Team Status: Active Member Role/Relationship Status Dates Dr. Mel Hernandez DO Primary Care Provider Active Team Status: Inactive Member Role/Relationship Status Dates Dr. Mel Hernandez DO Primary Care Provider Active Start: November 03, 2024 End: November 03, 2024 Dr. Mel Hernandez DO Attending Provider Active St art: November 03, 2024 End: November 03, 2024 Dr. Mel Hernandez DO Referring Provider Active St art: November 03, 2024 End: November 03, 2024 Team Status: Inactive Member Role/Relationship Status Dates Dr. Mel Hernandez DO Primary Care Provider Active Start: November 09, 2024 End: November 09, 2024 Dr. Mel Hernandez DO Attending Provider Active St art: November 09, 2024 End: November 09, 2024 Dr. Mel Hernandez DO Referring Provider Active St art: November 09, 2024 End: November 09, 2024 Team Status: Inactive Member Role/Relationship Status Dates Dr. Mel Hernandez DO Primary Care Provider Active Start: January 24, 2025 End: January 24, 2025 Dr. Mel Hernandez DO Attending Provider Active St art: January 24, 2025 End: January 24, 2025 Dr. Mel Hernandez DO Referring Provider Active St art: January 24, 2025 End: January 24, 2025 Reason for Visit (unrecogniz ed section and content) Specialty Diagnoses / Procedures Referred By Contac t Referred To Contact Radiology Diagnoses Hyperlipidemia, unspecified Procedures CT cardiac scoring wo IV contrast Mel Hernandez DO [address] [address] Referral ID Status Reason Start Date Expiration Date Visits Requested Visits Authorized [id number] Authorized Perform Procedure 08/25/2023 08/24/2024 1 1 Reason Comments New Patient Source Comments (unrecognize d section and content) In the event this informatio n is protected by the Federal Confidentiality of Alcohol and Drug Abuse Patient Records regulations: The Federal rules restrict any use of the information to criminally investigate or prosecute any alcohol or drug abuse patient.[facility] the event this information is protected by the Federal Confidentiality of Alcohol and Drug Abuse Patient Records regulations: The Federal rules restrict any use of the information to criminally investigate or prosecute any alcohol or drug abuse patient.[facility] FOR RECORDS PERTAINING TO PATIENTS WHO ARE OR HAVE BEEN ENROLLED IN A CHEMICAL DEPENDENCY/SUBSTANCEABUSE PROGRAM, SOME INFORMATION MAY BE OMITTED. This clinical summary was aggregated from multiple sources. Caution should be exercised in using it in the provision of clinical care. This summary normalizes information from multiple sources, and as a consequence, information in this document may materially change the coding, format and clinical context of patient data. In addition, data may be omitted in some cases. CLINICAL DECISIONS SHOULD BE BASED ON THE PRIMARY CLINICAL RECORDS. [facility]. provides no warranty or guarantee of the accuracy or completeness of information in this document.
--- NOTE | 2025-05-04 11:55 | STRESSREP ---
Stress Test Report Date: 05/04/2025 Procedure: Exercise tolerance test/imaging study Indications: CAD/dyspnea Consent: Per the patient Procedure: The patient exercised on a [place] protocol for 4 minutes achieving a peak heart rate of 131 bpm (95% predicted maximal heart rate) with a peak blood pressure 144/72 mmHg and a peak MET capacity of 7.0 METs. The baseline ECG demonstrated sinus rhythm. The peak exercise ECG did not show any ischemic changes. Rare PVC noted. The functional capacity was considered good for age. There was no complaint of chest discomfort during exercise or recovery. The examination was discontinued secondary to target heart rate being achieved and leg discomfort. The patient was injected with 11.6 mCi of technetium 99m Cardiolite and subsequently rest SPECT Cardiolite nuclear imaging was obtained in the horizontal long, vertical long, and short axis views. Post-exercise, the patient was injected with 32.9 mCi of technetium 99m Cardiolite and subsequently stress SPECT Cardiolite nuclear imaging was obtained in the horizontal long, vertical long, and short axis views. A gated Cardiolite study at peak stress was obtained. Rest and stress SPECT Cardiolite nuclear imaging status post realignment, normalization, and attenuation correction, demonstrates mildly reduced perfusion of the inferior wall post stress. There is end systolic thickening and brightening. The gated Cardiolite study demonstrates myocardial thickening and inward wall motion. The reported LVEF is 89%. Impression: 1. Technically adequate (percent predicted maximal heart rate greater than 85%) exercise tolerance test 2. Peak exercise ECG with no ischemic changes 3. Rare PVC noted 4. Rest and stress SPECT Cardiolite nuclear imaging demonstrate mildly reduced perfusion of the inferior wall that is suggestive of mild inferior wall ischemia. 5. The gated Cardiolite study reports an LVEF of 89%. This note was generated with [employer] software. It may contain incorrect words, spelling, and punctuation that were not noted in checking the note before signing.
== END | disposition home or self-care (01) ==
LOC: CVS 06:32
PROVIDERS: PCP Internal Medicine; Referring Provider Internal Medicine Cardiovascular Disease; Visit Provider Internal Medicine Cardiovascular Disease
DX: I25.10 Atherosclerotic heart disease of native coronary artery without angina pectoris (principal); J47.9 Bronchiectasis, uncomplicated; I47.29 Other ventricular tachycardia; I47.10 Supraventricular tachycardia, unspecified; I07.1 Rheumatic tricuspid insufficiency
CPT/HCPCS: 78452; 93017; 93306; A9500